=== PATIENT | female | born 1955 | race Caucasian/White ===

== ENCOUNTER 2017-11-12 13:30 | Inpatient (IN) ==
[2017-11-12] MEDS ORDERED: 0.9 % Sodium Chloride 1,000 ML IVC ONE (16:56)
[2017-11-12] MEDS ORDERED: Ondansetron 4 MG/2 ML VIAL IVP ONE (16:56)
--- NOTE | 2017-11-12 17:15 | Emergency Department Note ---
Disposition Clinical Impression: GI bleed Qualifiers: GI bleed type/associated pathology: unspecified gastrointestinal hemorrhage type Qualified Code(s): K92.2 - Gastrointestinal hemorrhage, unspecified DVT (deep venous thrombosis) Qualifiers: DVT location: lower extremity Affected thrombotic vein of extremity: popliteal Chronicity: chronic Laterality: left Qualified Code(s): I82.532 - Chronic embolism and thrombosis of left popliteal vein Disposition: Admitted As Inpatient Condition: Good General Adult HPI - General Chief complaint: ED General Medical Stated complaint: Multiple complaints Time Seen by Provider: 11/12/17 16:30 Source: patient Mode of arrival: private vehicle Limitations: no limitations Nursing Notes Reviewed: Yes Vital Signs Reviewed: Yes - History of Present Illness HPI Narrative: 62-year-old female history of DVT on Coumadin who presents to the ER with multiple complaints. Patient reports she is only here because her nurse made her come in and that she was going to have her bshe did not come. She repoain that has been going on for days. States but has been off that f from an eye surgery. States that she was out of her Coumadin and had not had her INR checked. She also reports that she has not been able to eat for several days with nausea vomiting and abdominal pain. She did not is on a mention that her left toe has been hurting her and that she has had pain there. She also reports that she has been dizzy and she thinks that she has been having rectal bleeding. She states she supposed to see surgery for an upper and lower GI tests. No other complaints. Pt Subjective Complaint: Left lower extremity pain, abdominal pain, nausea and vomiting Onset (ago): day(s) Location: abdomen Radiation: non-radiation Pain Scale: 10 Consistency: intermittent Improves with: nothing Worsens with: nothing Associated symptoms: Reports: nausea/vomiting. Denies: chest pain, fever/chills Treatments Prior to Arrival: none - Related Data Home Medications Medication Instructions Recorded Confirmed Furosemide [Lasix] 20 - 40 mg PO DAILY 11/12/17 11/12/17 Gabapentin [Neurontin] 800 mg PO TID 11/12/17 11/12/17 Insulin ASPART [NovoLOG] 0 unit SQ TIDWM 11/12/17 11/12/17 Insulin DETEMIR [Levemir] 60 unit SQ DAILY PRN 11/12/17 11/12/17 Ketorolac OPTH Soln [Acular] 1 drop RIGHT EYE QID 11/12/17 11/12/17 LevETIRAcetam [Keppra] 750 mg PO BID 11/12/17 11/12/17 Metoprolol [Lopressor] 50 mg PO BID 11/12/17 11/12/17 Oxycodone HCl/Acetaminophen 1 each PO Q8H PRN 11/12/17 11/12/17 [Percocet 10-325 mg Tablet] Oxygen 2.5 l NS HS 11/12/17 11/12/17 Potassium Chloride [Klor-Con 10] 10 meq PO DAILY 11/12/17 11/12/17 Prazosin [Minipress] 1 mg PO HS 11/12/17 11/12/17 Simvastatin [Zocor] 40 mg PO HS 11/12/17 11/12/17 Tizanidine HCl [Zanaflex] 4 mg PO HS 11/12/17 11/12/17 Warfarin Sodium [Coumadin] 6 mg PO MOWEFR 11/12/17 11/12/17 Warfarin [Coumadin] 5 mg PO SUTUTHSA 11/12/17 11/12/17 diazePAM [Valium] 5 mg PO HS 11/12/17 11/12/17 Allergies Allergy/AdvReac Type Severity Reaction Status Date / Time Penicillins Allergy Swelling Verified 11/12/17 14:13 of Lip/Tongue/Throat Sulfa (Sulfonamide Allergy Hives Verified 11/12/17 14:13 Antibiotics) tramadol Allergy Hives Verified 11/12/17 14:13 All systems ED: reviewed and negative except as stated. Constitutional: Denies: fever Cardiovascular: Reports: palpitations. Denies: chest pain Respiratory: Denies: cough, dyspnea Gastrointestinal: Reports: abdominal pain, nausea, vomiting, diarrhea, hematochezia Genitourinary: Denies: dysuria, hematuria Past Medical History - Past Medical History Attestation: Yes The following information was validated with the patient. Source: patient Medical history: Reports: DVT, diabetes, myocardial infarction - Social History Smoking Status: Former smoker Alcohol use: Reports: none Drug use: Reports: none Physical Exam - General Limitations: no limitations General appearance: alert, in no apparent distress - Head Head exam: atraumatic, normocephalic - Eye Eye exam: Present: normal appearance - ENT ENT exam: normal exam - Neck Neck exam: Present: normal inspection, full ROM - Chest Chest inspection: Present: normal inspection, symmetric chest wall rise - Respiratory Respiratory exam: Present: normal lung sounds bilaterally - Cardiovascular Cardiovascular exam: Present: regular rate, normal rhythm, normal heart sounds - Abdominal Exam Abdominal exam: Present: soft, tenderness (Mild diffuse tenderness to palpation) . Absent: distention, guarding, rigidity - Extremities Exam Extremities exam: Present: normal inspection, full ROM - Expanded Upper Extremity Exam Shoulder exam: Present: normal inspection, full ROM Arm exam: Present: normal inspection, full ROM Elbow exam: Present: normal inspection, full ROM Forearm/Wrist exam: Present: normal inspection, full ROM Hand exam: Present: normal inspection, full ROM - Expanded Lower Extremity Exam Hip/Pelvis exam: Present: normal inspection, full ROM Upper leg exam: Present: normal inspection, full ROM Knee exam: Present: normal inspection, full ROM Lower leg exam: Present: normal inspection, full ROM Ankle exam: Present: normal inspection, full ROM Foot/toe exam: Present: normal inspection, full ROM Neurovascular/Tendon exam: Absent: motor deficit, sensory deficit - Neurological Exam Neurological exam: Present: alert, other (GCS 15. Nonfocal exam.) - Psychiatric Psychiatric exam: Present: anxious - Skin Skin exam: Present: warm, dry Course Course Narrative: Patient seen and examined. She requires frequent redirection. She has numerous complaints at all do not seem to be acute. We will obtain an ultrasound of left lower extremity as well as baseline labs and coag studies. - Reevaluation(s) Reevaluation #1: Discussed results of imaging and labs with the patient. She is still guaiac positive. She will be admitted to the hospital for further management. Vital Signs Temperature 98.5 F 11/12/17 14:07 Pulse Rate 90 11/12/17 14:07 Respiratory Rate 20 11/12/17 14:07 Blood Pressure 172/92 11/12/17 14:07 O2 Sat by Pulse Oximetry 100 11/12/17 14:07 Temperature 97.8 F 11/13/17 10:59 Pulse Rate 62 11/13/17 10:59 Respiratory Rate 18 11/13/17 10:59 Blood Pressure 159/73 11/13/17 10:59 O2 Sat by Pulse Oximetry 99 11/13/17 10:59 Oxygen Delivery Oxygen Delivery Room Air Medical Decision Making - MDM Narrative Medical decision making narrative: 62-year-old female presents to the ER due to multiple complaints. Noted to have DVT in the left superficial femoral, popliteal and distal veins. Was previously on Coumadin however has not been on it for over a week. DVT study here demonstrates a chronic clot. She is stool guaiac positive. Hemoglobin is stable. Coags are normal. Patient started on heparin drip and admitted to the hospitalist service. - Lab Data Lab results reviewed: Yes I reviewed the patient's lab results. Result diagrams: 11/13/17 11:39 11/13/17 01:53 Lab Results 11/12/17 11/12/17 11/12/17 Range/Units 17:15 17:15 17:15 WBC 15.0 H (4.3-11.1) K/mcL RBC 3.97 (3.82-4.97) M/mcL Hgb 11.6 (11.5-15.4) g/dL Hct 35.9 (35.3-44.9) % MCV 90.4 (83.0-100.0) fL MCH 29.2 (28.0-33.3) pg MCHC 32.3 (31.6-35.5) g/dL RDW 14.1 (11.5-14.5) % Plt Count 271 (140-400) K/mcL MPV 10.2 (9.4-12.4) fL Immature Gran % 0.6 (0-4) % Seg Neutrophils % 65.9 % Lymphocytes % 23.3 % Monocytes % 7.1 % Eosinophils % 2.4 % Basophils % 0.7 % Neutrophils # 9.9 H (1.6-8.9) K/mcL Lymphocytes # 3.5 (0.6-4.6) K/mcL Monocytes # 1.1 (0.0-1.3) K/mcL Eosinophils # 0.4 (0.0-0.6) K/mcL Basophils # 0.1 (0.0-0.2) K/mcL PT (9.4-12.1) Seconds INR APTT (26.0-36.0) Seconds Sodium 140 (136-145) mEq/L Potassium 3.9 (3.5-5.1) mEq/L Chloride 111 H (98-107) mEq/L Carbon Dioxide 25 (23-29) mEq/L BUN 18 (8-23) mg/dL Creatinine 1.33 H (0.60-1.20) mg/dL Est GFR ( Amer) 49 L (> 60) Est GFR (Non-Af Amer) 40 L (> 60) BUN/Creatinine Ratio 14 (6-26) Glucose 161 H (70-105) mg/dL Calculated Osmolality 295 (280-300) Calcium 9.3 (8.6-10.3) mg/dL Total Bilirubin 0.4 (0.3-1.0) mg/dL Direct Bilirubin 0.0 (0.0-0.2) mg/dL Indirect Bilirubin 0.4 (0.0-1.2) mg/dL AST 22 (13-39) Units/L ALT 33 (7-52) Units/L Alkaline Phosphatase 78 (34-104) Units/L Troponin I < 0.03 (< 0.04) ng/mL Serum Total Protein 7.6 (6.4-8.9) g/dL Albumin 4.0 (3.5-5.7) g/dL Globulin 3.6 H (2.4-3.5) g/dL Albumin/Globulin Ratio 1.1 (1.1-2.2) Lipase 85 H (11-82) Units/L Urine Color (Yellow) Urine Clarity (Clear) Urine pH (5.0-8.0) pH Units Ur Specific [place] (1.010-1.025) Urine Protein (Neg-Trace) mg/dL Urine Glucose (UA) (Normal) mg/dL Urine Ketones (Negative) mg/dL Urine Blood (Negative) Urine Nitrite (Negative) Urine Bilirubin (Negative) Urine Urobilinogen (Normal) mg/dL Ur Leukocyte Esterase (Negative) Urine Microscopic RBC (0-3) per hpf Urine Microscopic WBC (0-3) per hpf Ur Squamous Epith Cells (None-Few) per lpf Urine Bacteria (None-Few) per hpf Hyaline Casts (None-Few) per lpf Ur Culture Indicated? (NO) Stool Occult Blood (Negative) 11/12/17 11/12/17 11/12/17 Range/Units 17:15 18:00 18:25 WBC (4.3-11.1) K/mcL RBC (3.82-4.97) M/mcL Hgb (11.5-15.4) g/dL Hct (35.3-44.9) % MCV (83.0-100.0) fL MCH (28.0-33.3) pg MCHC (31.6-35.5) g/dL RDW (11.5-14.5) % Plt Count (140-400) K/mcL MPV (9.4-12.4) fL Immature Gran % (0-4) % Seg Neutrophils % % Lymphocytes % % Monocytes % % Eosinophils % % Basophils % % Neutrophils # (1.6-8.9) K/mcL Lymphocytes # (0.6-4.6) K/mcL Monocytes # (0.0-1.3) K/mcL Eosinophils # (0.0-0.6) K/mcL Basophils # (0.0-0.2) K/mcL PT 11.3 (9.4-12.1) Seconds INR 1.1 APTT 29.3 (26.0-36.0) Seconds Sodium (136-145) mEq/L Potassium (3.5-5.1) mEq/L Chloride (98-107) mEq/L Carbon Dioxide (23-29) mEq/L BUN (8-23) mg/dL Creatinine (0.60-1.20) mg/dL Est GFR ( Amer) (> 60) Est GFR (Non-Af Amer) (> 60) BUN/Creatinine Ratio (6-26) Glucose (70-105) mg/dL Calculated Osmolality (280-300) Calcium (8.6-10.3) mg/dL Total Bilirubin (0.3-1.0) mg/dL Direct Bilirubin (0.0-0.2) mg/dL Indirect Bilirubin (0.0-1.2) mg/dL AST (13-39) Units/L ALT (7-52) Units/L Alkaline Phosphatase (34-104) Units/L Troponin I (< 0.04) ng/mL Serum Total Protein (6.4-8.9) g/dL Albumin (3.5-5.7) g/dL Globulin (2.4-3.5) g/dL Albumin/Globulin Ratio (1.1-2.2) Lipase (11-82) Units/L Urine Color Yellow (Yellow) Urine Clarity Cloudy A (Clear) Urine pH 6.0 (5.0-8.0) pH Units Ur Specific [place] 1.027 H (1.010-1.025) Urine Protein 100 H (Neg-Trace) mg/dL Urine Glucose (UA) 250 H (Normal) mg/dL Urine Ketones Negative (Negative) mg/dL Urine Blood Negative (Negative) Urine Nitrite Negative (Negative) Urine Bilirubin Negative (Negative) Urine Urobilinogen Normal (Normal) mg/dL Ur Leukocyte Esterase Moderate H (Negative) Urine Microscopic RBC 0-3 (0-3) per hpf Urine Microscopic WBC 15-30 H (0-3) per hpf Ur Squamous Epith Cells Many H (None-Few) per lpf Urine Bacteria Many H (None-Few) per hpf Hyaline Casts None Seen (None-Few) per lpf Ur Culture Indicated? NO (NO) Stool Occult Blood Positive A (Negative) - Radiology Data Radiology results reviewed: Yes I reviewed the patient's radiology results. Abdomen/Pelvis CT 11/12/17 20:06 IMPRESSION: 1. Smooth mucosal appearance of the distal left colon extending to the rectum with loss of normal haustral markings. This is a nonspecific finding that may indicate chronic inflammation. Please correlate with any history of inflammatory bowel disease. 2. No sign of acute inflammation on this noncontrast study. Underlying colitis cannot be excluded. 3. Sludge in the lumen of the gallbladder with no sign of inflammation or biliary ductal dilatation. D/ / Mikey Villalpando MD / Mikey Villalpando MD Interpreting Provider: Mikey Villalpando MD - EKG Data EKG #1 EKG attestation: Yes I reviewed and interpreted this EKG. EKG results narrative: EKG demonstrates sinus rhythm with a rate of 80 bpm. Normal axis. Normal intervals. Normal R-wave progression. No gross ST elevations or depressions. No acute ischemic findings. No significant changes from previous EKG dated 01/03. Attestation Statement - Attestation Attestation: I examined this patient and my medical decision-making was reviewed with the Resident Physician, Dr. Velásquez. I agree with the documented findings, disposition and treatment plan as described except to the extent set forth below. Patient is a 62-year-old white female who presents to the emergency room today with multiple complaints but primary concern is that she had recently stopped her Coumadin that she was taking for chronic DVT for an recent eye procedure and was supposed to be restarted 3-4 days ago and due to her being out of the medication and the holiday she was unable to restart this. Patient is here with worsening pain she points primarily to the toe of the left lower extremity and she has a small ulceration to the bottom of her left great toe. There is no drainage or surrounding erythema. Patient with no fevers or chills. Patient states over the past 36 hours she has had one episode of vomiting associated with nausea as well as some bowel changes that she describes as nonbloody diarrhea. Patient denies any significant abdominal pain, no chest pain pressure or heaviness, no shortness of breath, no lightheadedness or syncope, no flank pain or urinary symptoms. Patient's physical exam findings as documented. Vital signs are stable on arrival and patient in no acute distress. Rectal exam at bedside was grossly negative but guaiac positive. Patient's hemoglobin is stable at this time. Unclear if bleeding could be related to frequent stooling and some bowel irritation versus lower GI bleeding. Patient is hemodynamically stable with a stable hemoglobin at this time. Patient's repeat Doppler study of her left lower extremity was negative for DVT. Patient will be restarted on heparin but hospitalized for close management and serial hemoglobin. CAT scan of her abdomen and pelvis was negative for diverticulitis or any acute intra-abdominal pathology but did show some slight inflammation of the distal colon consistent with her history of diarrhea. Case is discussed with the hospitalist who is except the patient for admission.
[2017-11-12 17:25] LABS: Basophils # 0.1 K/mcL (0.0-0.2); Basophils % 0.7 %; Eosinophils # 0.4 K/mcL (0.0-0.6); Eosinophils % 2.4 %; Hematocrit 35.9 % (35.3-44.9); Hemoglobin 11.6 g/dL (11.5-15.4); Immature Granulocytes % 0.6 % (0-4); Lymphocytes # 3.5 K/mcL (0.6-4.6); Lymphocytes % 23.3 %; Mean Corpuscular HGB Conc 32.3 g/dL (31.6-35.5); Mean Corpuscular Hemoglobin 29.2 pg (28.0-33.3); Mean Corpuscular Volume 90.4 fL (83.0-100.0); Mean Platelet Volume 10.2 fL (9.4-12.4); Monocytes # 1.1 K/mcL (0.0-1.3); Monocytes % 7.1 %; Neutrophils # 9.9 K/mcL (1.6-8.9); Platelet Count 271 K/mcL (140-400); Red Blood Count 3.97 M/mcL (3.82-4.97); Red Cell Distribution Width 14.1 % (11.5-14.5); Segmented Neutrophils % 65.9 %
[2017-11-12 17:28] LABS: INR 1.1; Prothrombin Time 11.3 Seconds (9.4-12.1)
[2017-11-12 17:35] LABS: Albumin/Globulin Ratio 1.1 (1.1-2.2); Bilirubin,Indirect 0.4 mg/dL (0.0-1.2); Bilirubin,Total 0.4 mg/dL (0.3-1.0); Calcium 9.3 mg/dL (8.6-10.3); Globulin 3.6 g/dL (2.4-3.5); Potassium 3.9 mEq/L (3.5-5.1); Total Protein 7.6 g/dL (6.4-8.9)
[2017-11-12 18:43] LABS: Bilirubin,Urine Negative (Negative); Blood,Urine Negative (Negative); Clarity,Urine Cloudy (Clear); Color,Urine Yellow (Yellow); Glucose,Urine (UA) 250 mg/dL (Normal); Ketones,Urine Negative (Negative); Leukocyte Esterase,Urine Moderate (Negative); Nitrite,Urine Negative (Negative); Protein,Urine 100 mg/dL (Neg-Trace); Specific Gravity,Urine 1.027 (1.010-1.025); Urobilinogen,Urine Normal (Normal)
[2017-11-12 18:44] LABS: Bacteria,Urine Many per hpf (None-Few); Hyaline Casts,Urine None Seen per lpf (None-Few); RBC,Urine 0-3 per hpf (0-3); Squamous Epithelial Cell,Urine Many per lpf (None-Few); WBC,Urine 15-30 per hpf (0-3)
[2017-11-12] MEDS ORDERED: *HR* Heparin 5,000 UNIT/ML VIAL IVP ONE (18:52)
[2017-11-12] MEDS ORDERED: *HR* Heparin 5,000 UNIT/ML VIAL IVP PRN ×2 (18:52)
[2017-11-12] MEDS ORDERED: Heparin 25,000 UNIT/500 ML D5W 25,000 UNIT/500 ML BAG IVC SCH (19:00)
[2017-11-12 19:12] LABS: Activated Partial Thrombo Time 29.3 Seconds (26.0-36.0)
[2017-11-12] MEDS ORDERED: NON-FORMULARY MEDICATION 1 EACH EACH (Insulin Detemir 60 UNIT) SQ PRN (19:50)
[2017-11-12] MEDS ORDERED: Acetaminophen 325 MG TABLET PO PRN (19:52)
[2017-11-12] MEDS ORDERED: Naloxone 0.4 MG/ML INJ IVP PRN (19:52)
[2017-11-12] MEDS ORDERED: Ondansetron 4 MG/2 ML VIAL IVP PRN (19:52)
[2017-11-12] MEDS ORDERED: Levofloxacin 500 MG/100 ML 500 MG/100 ML BAG IVPB SCH (20:00)
[2017-11-12] MEDS ORDERED: D5% in 0.45% NACL 1,000 ML IVC SCH (20:00)
--- NOTE | 2017-11-12 20:03 | Internal Med History&Physical ---
<Alma Dolan - Last Filed: 11/12/17 21:05> Date of Encounter: 11/12/17 Time of Encounter: 19:57 Assessment and Plan (1) DVT (deep venous thrombosis) Current visit: Yes Status: Acute - Off coumadin for a week due to eye surgery. should resume 1 day after surgery but pt stated she was out of medicine. - New DVT formed on the left leg. - Heparin gtt restarted and will follow the protocol. - may consult vascular if GI bleeding poses a serious issue. - plan to bridge to coumadin. Qualifiers: DVT location: lower extremity Affected thrombotic vein of extremity: popliteal Chronicity: chronic Laterality: left Qualified Code(s): I82.532 - Chronic embolism and thrombosis of left popliteal vein (2) GI bleed Current visit: Yes Status: Acute - FOBT positive. H/H stable right now. - continue monitor GI bleed and trend H/H. - If bleeding getting worse, may need to stop heparin gtt. Qualifiers: GI bleed type/associated pathology: unspecified gastrointestinal hemorrhage type Qualified Code(s): K92.2 - Gastrointestinal hemorrhage, unspecified (3) Abdominal pain Current visit: Yes Status: Acute - abd pain with diarrhea. - C. diff toxin sent. stool for WBC. - CT abd ordered. - IV hydration Qualifiers: Abdominal location: generalized Qualified Code(s): R10.84 - Generalized abdominal pain (4) Diabetes Current visit: Yes Status: Chronic - insulin Slide scale and home insulin. - monitor BS. 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 - continue home meds. Qualifiers: Coronary Disease-Associated Artery/Lesion type: platinum artery [place] vs. transplanted heart: platinum heart Associated angina: without angina Qualified Code(s): I25.10 - Atherosclerotic heart disease of platinum coronary artery without angina pectoris (6) HTN (hypertension) Current visit: Yes Status: Chronic - stable and continue home meds. Qualifiers: Hypertension type: essential hypertension Qualified Code(s): I10 - Essential (primary) hypertension (7) UTI (urinary tract infection) Current visit: Yes Status: Acute - Levaquin IV and repeat UA once finish the abx course. Qualifiers: Urinary tract infection type: acute cystitis Hematuria presence: without hematuria Qualified Code(s): N30.00 - Acute cystitis without hematuria Internal Medicine - H&P: HPI Admitted From: Emergency Dept Plans for Post Hospital Care: Home History of present illness: Ms. Dionisio Charlton is a 62 year old female with history of DVT on Coumadin who presents to the ER with multiple complaints. Patient reports she is only here because her nurse made her come in. Marty has Hx of DVT and was on coumadin but has been off that from an eye surgery about a week ago. States that she was out of her Coumadin and had not had her INR checked after the surgery. She also reports that she has not been able to eat for several days with nausea vomiting and abdominal pain. On the past 2-3 days, she began to have diarrhea with black stool. She also reports that she has been dizzy and she thinks that she has been having rectal bleeding. She states she supposed to see GI for an upper and lower GI scopes. No other complaints. At the ED, her vital signs were stable. Occult blood test was positive. Lower extremity lower extremity Doppler revealed new thrombosis with old blood clots. She was started on heparin drip. She was also found to have UTI and antibiotics was given. She was admitted to the inpatient service for further evaluation and management. Past Med Surg Social Fam HX - Past Medical History Medical history: DVT, diabetes, myocardial infarction - Social History Smoking Status: Former smoker Alcohol use: none Drug use: none Internal Medicine - H&P: Meds Furosemide [Lasix] 20 - 40 mg PO DAILY 11/12/17 [History] Gabapentin [Neurontin] 800 mg PO TID 11/12/17 [History] Insulin ASPART [NovoLOG] 0 unit SQ TIDWM 11/12/17 [History] Insulin DETEMIR [Levemir] 60 unit SQ DAILY PRN 11/12/17 [History] Ketorolac OPTH Soln [Acular] 1 drop RIGHT EYE QID 11/12/17 [History] LevETIRAcetam [Keppra] 750 mg PO BID 11/12/17 [History] Metoprolol [Lopressor] 50 mg PO BID 11/12/17 [History] Oxycodone HCl/Acetaminophen [Percocet 10-325 mg Tablet] 1 each PO Q8H PRN [History] Oxygen 2.5 l NS HS 11/12/17 [History] Potassium Chloride [Klor-Con 10] 10 meq PO DAILY 11/12/17 [History] Prazosin [Minipress] 1 mg PO HS 11/12/17 [History] Simvastatin [Zocor] 40 mg PO HS 11/12/17 [History] Tizanidine HCl [Zanaflex] 4 mg PO HS 11/12/17 [History] Warfarin Sodium [Coumadin] 6 mg PO MOWEFR 11/12/17 [History] Warfarin [Coumadin] 5 mg PO SUTUTHSA 11/12/17 [History] diazePAM [Valium] 5 mg PO HS 11/12/17 [History] 3 Allergy/AdvReac Type Severity Reaction Status Date / Time Penicillins Allergy Swelling Verified 11/12/17 14:13 of Lip/Tongue/Throat Sulfa (Sulfonamide Allergy Hives Verified 11/12/17 14:13 Antibiotics) tramadol Allergy Hives Verified 11/12/17 14:13 All Systems PM: A 10-system review of systems was performed and is negative for pertinent findings except as documented above in the HPI. Review of systems: REVIEW OF SYSTEMS: CONSTITUTIONAL: No weight loss, fever, chills, weakness or fatigue. HEENT: Eyes: No visual loss, blurred vision, double vision or yellow sclerae. Ears, Nose, Throat: No hearing loss, sneezing, congestion, runny nose or sore throat. SKIN: No rash or itching. CARDIOVASCULAR: No chest pain, chest pressure or chest discomfort. No palpitations or edema. RESPIRATORY: No shortness of breath, cough or sputum. GASTROINTESTINAL: see HPI. GENITOURINARY: No dysuria, urgency, or frequency. NEUROLOGICAL: No headache, dizziness, syncope, paralysis, ataxia, numbness or tingling in the extremities. No change in bowel or bladder control. MUSCULOSKELETAL: No muscle, back pain, joint pain or stiffness. HEMATOLOGIC: No anemia, bleeding or bruising. LYMPHATICS: No enlarged nodes. No history of splenectomy. PSYCHIATRIC: No history of depression or anxiety. ENDOCRINOLOGIC: No reports of sweating, cold or heat intolerance. No polyuria or polydipsia. - Constitutional Vitals: Temp Pulse Resp BP Pulse Ox 98.5 F 75 16 166/84 100 11/12/17 14:07 11/12/17 18:49 11/12/17 18:49 11/12/17 18:49 11/12/17 18:49 Exam: PHYSICAL EXAMINATION: GENERAL APPEARANCE: The patient is alert, oriented and in no acute distress. HEENT: Head is normocephalic. The sinuses are nontender. Pupils are equal and reactive. The nares are patent. Oropharynx clear without lesions. NECK: Supple without lymphadenopathy. HEART: Regular rate and rhythm. LUNGS: No crackles or wheezes are heard. ABDOMEN: Soft, diffuse tender with palpation. No rebound. BS normal. EXTREMITIES: Without cyanosis, clubbing or edema. NEUROLOGICAL: Gross nonfocal. SKIN: Warm and dry without any rash. Internal Med - H&P Results - Labs CBC & Chem 7: 11/12/17 17:15 11/12/17 17:15 <Kenia Connelly - Last Filed: 11/13/17 03:25> Date of Encounter: 11/13/17 Internal Medicine - H&P: HPI History of present illness: Ms. Dionisio Charlton is a 62 year old female All Systems PM: A 10-system review of systems was performed and is negative for pertinent findings except as documented above in the HPI. - Constitutional Vitals: Temp Pulse Resp BP Pulse Ox 98.1 F 80 17 175/88 100 11/12/17 21:43 11/12/17 21:43 11/12/17 21:43 11/12/17 21:43 11/12/17 21:43 Internal Med - H&P Results - Labs CBC & Chem 7: 11/13/17 01:53 11/13/17 01:53 Labs: Short CBC 11/13/17 Range/Units 01:53 WBC 13.2 H (4.3-11.1) K/mcL Hgb 9.3 L D (11.5-15.4) g/dL Hct 28.2 L (35.3-44.9) % Plt Count 198 (140-400) K/mcL BMP 11/13/17 01:53 Sodium 138 Potassium 4.1 Chloride 114 H Carbon Dioxide 21 L BUN 15 Creatinine 1.12 Glucose 252 H Calcium 8.4 L - Impressions ITS Impressions Abdomen/Pelvis CT 11/12/17 20:06 IMPRESSION: 1. Smooth mucosal appearance of the distal left colon extending to the rectum with loss of normal haustral markings. This is a nonspecific finding that may indicate chronic inflammation. Please correlate with any history of inflammatory bowel disease. 2. No sign of acute inflammation on this noncontrast study. Underlying colitis cannot be excluded. 3. Sludge in the lumen of the gallbladder with no sign of inflammation or biliary ductal dilatation. D/ / Mikey Villalpando MD / Mikey Villalpando MD Interpreting Provider: Mikey Villalpando MD - Attending Attestation I have seen and examined pt independently. I have discussed with [employer] SPECIALIST Mr Dolan regarding the management plan. Agree with documentation. Pt suspect GI bleed. She has positive guaiac test, but stable vitals and H/H. She has acute on chronic DVT, will hold warfarin (pt is not on and INR subtherapeutic) and placed pt on heparin drip at this point. Consult GI for GI bleed. Pt has UTI will place her on levaquin. She also has left toe wound, will consult wound care and if necessary, consult podiatry (non-urgent).
[2017-11-12] MEDS ORDERED: D5% in Water 1,000 ML IVC PRN (20:19)
[2017-11-12] MEDS ORDERED: Dextrose Gel 15 GM/37.5 ML TUBE PO PRN ×2 (20:19)
[2017-11-12] MEDS ORDERED: *HR* Dextrose 50 % in Water (Syg) 50 ML SYRINGE IVP PRN (20:19)
[2017-11-12] MEDS ORDERED: Insulin DETEMIR 100 UNIT/ML X5UNITS SQ PRN (20:37)
[2017-11-12] MEDS: Gabapentin 400 MG CAPSULE PO SCH (21:53)
[2017-11-12] MEDS: diazePAM 5 MG TABLET PO SCH (21:53)
[2017-11-12] MEDS: *HR* OxyCODONE/APAP 10/325 TABLET PO PRN (21:54)
[2017-11-12] MEDS: levETIRAcetam 250 MG TABLET PO SCH (21:54)
[2017-11-12] MEDS: tiZANidine 4 MG TABLET PO SCH (21:55)
[2017-11-12] MEDS: Insulin LISPRO 300 UNITS/3 ML VIAL SQ SCH (21:56)
[2017-11-12] MEDS: Furosemide 20 MG TABLET PO SCH (22:00)
[2017-11-13] MEDS: Ketorolac OPTH Soln 5 ML BOTTLE RIGHT EYE SCH ×5 (01:10→21:49)
[2017-11-13] MEDS: Insulin LISPRO 300 UNITS/3 ML VIAL SQ SCH ×6 (01:10→17:06)
[2017-11-13 02:04] LABS: Hematocrit 28.2 % (35.3-44.9); Hemoglobin 9.3 g/dL (11.5-15.4); Mean Platelet Volume 10.4 fL (9.4-12.4); Platelet Count 198 K/mcL (140-400); Red Cell Distribution Width 14.1 % (11.5-14.5)
[2017-11-13 02:21] LABS: Calcium 8.4 mg/dL (8.6-10.3); Potassium 4.1 mEq/L (3.5-5.1)
[2017-11-13 02:28] LABS: Activated Partial Thrombo Time 141.4 Seconds (26.0-36.0)
[2017-11-13 02:33] LABS: Heparin anti-factor XA UFH 0.82 IU/mL (0.30-0.70)
[2017-11-13] MEDS: *HR* Morphine 2 MG/ML SYRINGE IVP PRN ×2 (03:40→09:17)
[2017-11-13] MEDS: Gabapentin 400 MG CAPSULE PO SCH ×3 (09:08→21:40)
[2017-11-13] MEDS: Furosemide 20 MG TABLET PO SCH (09:08)
[2017-11-13] MEDS: levETIRAcetam 250 MG TABLET PO SCH ×2 (09:08→21:40)
[2017-11-13] MEDS: *HR* OxyCODONE/APAP 10/325 TABLET PO PRN ×2 (10:18→21:52)
[2017-11-13] MEDS: Insulin DETEMIR 100 UNIT/ML X5UNITS SQ SCH (10:18)
--- NOTE | 2017-11-13 10:57 | Gastroenterology Consult Note ---
<Ivan Holguin Tom - Last Filed: 11/13/17 10:54> Date of Encounter: 11/13/17 Time of Encounter: 10:20 - Assessment and plan (1) GI bleed Current Visit: Yes Status: Acute Assessment and plan: Patient with dark stools and occasional BRBPR. Plan for EGD and colonoscopy tomorrow. Clear liquid diet today, no red or purple. NPO at midnight. If unable tolerate NuLytely please use MiraLAX prep. If not clear by 6 AM, give 2 tap water enemas. Will need to hold Heparin gtt 6 hours before scopes. Qualifiers: GI bleed type/associated pathology: unspecified gastrointestinal hemorrhage type Qualified Code(s): K92.2 - Gastrointestinal hemorrhage, unspecified (2) DVT (deep venous thrombosis) Current Visit: Yes Status: Acute Assessment and plan: Hold Heparin gtt at 0200 for EGD and colonoscopy at 0800 tomorrow. Qualifiers: DVT location: lower extremity Affected thrombotic vein of extremity: popliteal Chronicity: chronic Laterality: left Qualified Code(s): I82.532 - Chronic embolism and thrombosis of left popliteal vein (3) Abdominal pain Current Visit: Yes Status: Acute Assessment and plan: CT A/P shows smooth mucosal appearance of the distal left colon extending to the rectum with loss of normal haustral markings c/w nonspecific chronic inflammation, no acute inflammation. Sludge in gallbladder. Plan for EGD tomorrow. Qualifiers: Abdominal location: generalized Qualified Code(s): R10.84 - Generalized abdominal pain - Time Spent With Patient Total time spent is greater than 50% in coordination of care (as documented) at patient's floor/unit and/or counseling patient: GI History of Present Illness - Data of Consult Patient: new to practice Consult date: 11/13/17 Requesting Physician: Tariq Brennan - Consult Narrative Reason for consult: GI bleeding History of present illness: Ms. Dionisio Charlton is a 62 year old female with PMHx of DVT on Coumadin, DM, [place] who presented to the ED with abdominal pain, nausea, and vomiting. She also reports diarrhea with black stool and occasional BRBPR. She was recently scheduled for EGD and colonoscopy 10/30/[address] Carrington, but rescheduled the procedures. She states her mother has a history of colon cancer, and the patient's last colonoscopy was 7 years ago at [facility]. On admission FOBT was positive. She has history of DVT and was on coumadin but has been off that from an eye surgery about a week ago. States that she was out of her Coumadin and had not had her INR checked after the surgery. Lower extremity doppler revealed new thrombus along with chronic thrombus. Procedures: Colonoscopy 7 years ago at [facility]. NSAIDs: None Anticoagulation: Coumadin Past Med Surg Social Fam HX - Past Medical History Medical history: DVT, diabetes, myocardial infarction Psychiatric history: anxiety, depression - Past Surgical History Surgical History: hysterectomy - Social History Smoking Status: Former smoker Packs per day: 1/2 Smokeless Tobacco Status: No Alcohol use: none Drug use: none - Gastrointestinal Gastrointestinal: Present: as per HPI - Constitutional Constitutional: as per HPI - EENT Eyes: as per HPI Ears: Present: as per HPI Nose, mouth and throat: Present: as per HPI - Cardiovascular Cardiovascular ROS: Present: as per HPI - Respiratory Respiratory IM: Present: as per HPI - Genitourinary Genitourinary: Absent: change in color, Urinary frequency - Neurological ROS Neurological GI: Present: as per HPI - Hematologic/Lymphatic Hematologic/Lymphatic pediatric: Present: as per HPI - Musculoskeletal Musculoskeletal ROS GI: Present: as per HPI - Integumentary Integumentary GI: Present: as per HPI - Psychiatric ROS Psychiatric GI: Present: as per HPI - Endocrine Endocrine IM: Present: as per HPI - Constitutional Vitals: Temp Pulse Resp BP Pulse Ox 98.4 F 73 18 120/71 98 11/13/17 07:05 11/13/17 07:05 11/13/17 07:05 11/13/17 07:05 11/13/17 07:05 General appearance: Present: cooperative, A&O X 3, no acute distress, answers questions appropriately - Head Head exam: Present: atraumatic, normocephalic - Eye Eye exam: Present: normal appearance, sclera anicteric - ENT ENT exam: Present: mucous membranes moist - Neck Neck exam general surgery: Present: normal inspection, trachea midline - Respiratory Respiratory exam: Present: CTAB. Absent: rales, rhonchi - Cardiovascular Cardiovascular exam: Present: RRR, +S1, +S2 - GI/Abdominal GI/Abdominal exam: Present: soft, tenderness (mild diffuse tenderness), no peritoneal signs. Absent: distended, firm, guarding - Rectal Rectal exam: Present: deferred - Extremities Exam Extremities exam: Present: warm - Neurological Exam Neurological exam: Present: no focal deficits - Psychiatric Psychiatric exam: Present: normal affect, normal mood - Skin Skin exam: Present: dry, intact, normal color, warm Results - Labs CBC & Chem 7: 11/13/17 01:53 11/13/17 01:53 Labs: Last Result Calcium 8.4 mg/dL (8.6-10.3) L 11/13/17 01:53 Troponin I < 0.03 ng/mL (< 0.04) 11/12/17 17:15 Stool Occult Blood Positive (Negative) A 11/12/17 18:00 Entire Visit Hgb 9.3 g/dL (11.5-15.4) L D 11/13/17 01:53 Hct 28.2 % (35.3-44.9) L 11/13/17 01:53 PT 11.3 Seconds (9.4-12.1) 11/12/17 17:15 Total Bilirubin 0.4 mg/dL (0.3-1.0) 11/12/17 17:15 AST 22 Units/L (13-39) 11/12/17 17:15 ALT 33 Units/L (7-52) 11/12/17 17:15 Lipase 85 Units/L (11-82) H 11/12/17 17:15 - ABG ABG results: PT/INR, D-dimer PT 11.3 Seconds (9.4-12.1) 11/12/17 17:15 - Impressions Impressions Abdomen/Pelvis CT 11/12/17 20:06 IMPRESSION: 1. Smooth mucosal appearance of the distal left colon extending to the rectum with loss of normal haustral markings. This is a nonspecific finding that may indicate chronic inflammation. Please correlate with any history of inflammatory bowel disease. 2. No sign of acute inflammation on this noncontrast study. Underlying colitis cannot be excluded. 3. Sludge in the lumen of the gallbladder with no sign of inflammation or biliary ductal dilatation. D/ / Mikey Villalpando MD / Mikey Villalpando MD Interpreting Provider: Mikey Villalpando MD Consult Discharge Plan - Plan Referrals: Nelda Tamayo [Primary Care Provider] - <Sol Cotaed - Last Filed: 11/14/17 08:40> Date of Encounter: 11/13/17 Time of Encounter: 13:00 - Time Spent With Patient Total time spent is greater than 50% in coordination of care (as documented) at patient's floor/unit and/or counseling patient: GI History of Present Illness - Data of Consult Requesting Physician: Zeke Jensen DO - Consult Narrative History of present illness: Ms. Dionisio Charlton is a 62 year old female - Constitutional Vitals: Temp Pulse Resp BP Pulse Ox 98.1 F 62 16 116/63 100 11/13/17 18:29 11/14/17 06:36 11/14/17 06:36 11/14/17 06:36 11/14/17 06:36 Results - Labs CBC & Chem 7: 11/14/17 00:29 11/14/17 00:29 Labs: Last Result Calcium 8.3 mg/dL (8.6-10.3) L 11/14/17 00:29 Troponin I < 0.03 ng/mL (< 0.04) 11/12/17 17:15 Stool Occult Blood Positive (Negative) A 11/12/17 18:00 Entire Visit Hgb 9.1 g/dL (11.5-15.4) L 11/14/17 00:29 Hct 28.6 % (35.3-44.9) L 11/14/17 00:29 PT 12.1 Seconds (9.4-12.1) 11/14/17 00:29 Total Bilirubin 0.4 mg/dL (0.3-1.0) 11/12/17 17:15 AST 22 Units/L (13-39) 11/12/17 17:15 ALT 33 Units/L (7-52) 11/12/17 17:15 Lipase 85 Units/L (11-82) H 11/12/17 17:15 - ABG ABG results: PT/INR, D-dimer PT 12.1 Seconds (9.4-12.1) 11/14/17 00:29 - Impressions Impressions Foot X-Ray 11/13/17 17:34 IMPRESSION: 1. Mild nonspecific edema throughout the soft tissues. No subcutaneous gas identified. 2. No radiographic evidence for osteomyelitis. 3. Osteopenia. D/ / Isaias Sanchez MD / Isaias Sanchez MD Interpreting Provider: Isaias Sanchez MD - Attending Attestation I examined this patient and my medical decision-making was reviewed with the Resident Physician. I agree with the documented findings, disposition and treatment plan as described except to the extent set forth below.
[2017-11-13 12:20] LABS: Hemoglobin 10.2 g/dL (11.5-15.4)
--- NOTE | 2017-11-13 15:46 | Internal Med Progress Note ---
Addendum entered and electronically signed by Symone Bustamante DO 15:55: A/P 6) foot ulcer - wound care consulted Original Note: <Symone Bustamante - Last Filed: 11/13/17 15:42> Date of Encounter: 11/13/17 Time of Encounter: 15:42 - Assessment and plan (1) DVT (deep venous thrombosis) Current Visit: Yes Status: Acute Assessment and plan: Currently on heparin gtt; it will stop at 2am for EGD/colonoscopy H/H Q4H throughout the night IVC filter by IR tomorrow Qualifiers: DVT location: lower extremity Affected thrombotic vein of extremity: popliteal Chronicity: chronic Laterality: left Qualified Code(s): I82.532 - Chronic embolism and thrombosis of left popliteal vein (2) GI bleed Current Visit: Yes Status: Acute Assessment and plan: Plan for EGD/colonoscopy tomorrow Qualifiers: GI bleed type/associated pathology: unspecified gastrointestinal hemorrhage type Qualified Code(s): K92.2 - Gastrointestinal hemorrhage, unspecified (3) Diabetes Current Visit: Yes Status: Chronic Assessment and plan: Home insulin and sliding scale Accu-Cheks ADA diet after EGD and colonoscopy Qualifiers: Diabetes mellitus type: type 2 Diabetes mellitus complication status: without complication Diabetes mellitus laborer marine terminal insulin use: with laborer marine terminal use Qualified Code(s): E11.9 - Type 2 diabetes mellitus without complications ; Z79.4 - intermediate (current) use of insulin; Z79.4 - intermediate (current) use of insulin; Z79.4 - rn long term care (current) use of insulin; Z79.4 - rn long term care ( current) use of insulin (4) HTN (hypertension) Current Visit: Yes Status: Chronic Assessment and plan: Chronic, stable Continue medications Qualifiers: Hypertension type: essential hypertension Qualified Code(s): I10 - Essential (primary) hypertension (5) CAD (coronary artery disease) Current Visit: Yes Status: Chronic Assessment and plan: Chronic, stable Continue medications Qualifiers: Coronary Disease-Associated Artery/Lesion type: [place] artery [place] vs. transplanted heart: [place] heart Associated angina: without angina Qualified Code(s): I25.10 - Atherosclerotic heart disease of [place] coronary artery without angina pectoris - Subjective Interval history: Patient states she filled up 12 depends with diarrhea last night. She has no appetite and is nauseous. She also is complaining of pain in her left leg. - Constitutional Vitals: Temp Pulse Resp BP Pulse Ox 97.8 F 62 18 159/73 99 11/13/17 10:59 11/13/17 10:59 11/13/17 10:59 11/13/17 10:59 11/13/17 10:59 General appearance: Present: A&O X 3, answers questions appropriately - Head Head exam: Present: atraumatic, normocephalic - Eye Eye exam: Present: PERRL, conjuntiva pink, sclera anicteric Pupils: Present: PERRL - Neck Neck exam general surgery: Present: supple, trachea midline - Respiratory Respiratory exam: Present: CTAB. Absent: accessory muscle use, rales, rhonchi, wheezes - Cardiovascular Cardiovascular exam: Present: RRR, +S1, +S2. Absent: diastolic murmur, gallop, rubs, systolic murmur - GI/Abdominal GI/Abdominal exam: Present: normal bowel sounds, soft, tenderness (diffuse). Absent: distended - Extremities Exam Additional comments: L LE with 1-2+ pitting edema, tenderness to palpation; bilateral LE capillary refill 2 seconds, posterior tibial pulses palpable and symmetric; left first toe with 7-8 mm ulcer on plantar aspect of DIP. - Neurological Exam Neurological exam: Present: CN II-XII intact, oriented X3, no focal deficits. Absent: pronater drift, facial droop, speech deficit - Skin Skin exam: Present: dry, intact Internal Medicine: Result - Labs CBC & Chem 7: 11/13/17 11:39 11/13/17 01:53 Labs: Short CBC 11/13/17 11/13/17 Range/Units 01:53 11:39 WBC 13.2 H (4.3-11.1) K/mcL Hgb 9.3 L D 10.2 L (11.5-15.4) g/dL Hct 28.2 L 32.0 L (35.3-44.9) % Plt Count 198 (140-400) K/mcL BMP 11/13/17 01:53 Sodium 138 Potassium 4.1 Chloride 114 H Carbon Dioxide 21 L BUN 15 Creatinine 1.12 Glucose 252 H Calcium 8.4 L - ABG Interpretation ABG results: PT/INR, D-dimer PT 11.3 Seconds (9.4-12.1) 11/12/17 17:15 - Impressions Impressions Abdomen/Pelvis CT 11/12/17 20:06 IMPRESSION: 1. Smooth mucosal appearance of the distal left colon extending to the rectum with loss of normal haustral markings. This is a nonspecific finding that may indicate chronic inflammation. Please correlate with any history of inflammatory bowel disease. 2. No sign of acute inflammation on this noncontrast study. Underlying colitis cannot be excluded. 3. Sludge in the lumen of the gallbladder with no sign of inflammation or biliary ductal dilatation. D/ / Mikey Villalpando MD / Mikey Villalpando MD Interpreting Provider: Mikey Villalpando MD Consult Discharge Plan - Plan Referrals: Nelda Tamayo [Primary Care Provider] - <Bharat Mccain - Last Filed: 11/13/17 17:18> Date of Encounter: 11/13/17 - Constitutional Vitals: Temp Pulse Resp BP Pulse Ox 97.5 F L 73 18 129/74 100 11/13/17 16:19 11/13/17 16:19 11/13/17 16:19 11/13/17 16:19 11/13/17 16:19 Internal Medicine: Result - Labs CBC & Chem 7: 11/13/17 11:39 11/13/17 01:53 Labs: Short CBC 11/13/17 11/13/17 Range/Units 01:53 11:39 WBC 13.2 H (4.3-11.1) K/mcL Hgb 9.3 L D 10.2 L (11.5-15.4) g/dL Hct 28.2 L 32.0 L (35.3-44.9) % Plt Count 198 (140-400) K/mcL BMP 11/13/17 01:53 Sodium 138 Potassium 4.1 Chloride 114 H Carbon Dioxide 21 L BUN 15 Creatinine 1.12 Glucose 252 H Calcium 8.4 L - ABG Interpretation ABG results: PT/INR, D-dimer PT 11.3 Seconds (9.4-12.1) 11/12/17 17:15 - Impressions Impressions Abdomen/Pelvis CT 11/12/17 20:06 IMPRESSION: 1. Smooth mucosal appearance of the distal left colon extending to the rectum with loss of normal haustral markings. This is a nonspecific finding that may indicate chronic inflammation. Please correlate with any history of inflammatory bowel disease. 2. No sign of acute inflammation on this noncontrast study. Underlying colitis cannot be excluded. 3. Sludge in the lumen of the gallbladder with no sign of inflammation or biliary ductal dilatation. D/ / Mikey Villalpando MD / Mikey Villalpando MD Interpreting Provider: Mikey Villalpando MD - Attending Attestation I conducted a face to face diagnostic evaluation of this patient and my medical decision-making was reviewed with the Resident Physician, Dr Symone Bustamante. I agree with the documented findings, disposition and treatment plan as described except to the extent set forth below: Patient complains of bloody diarrhea. Abdominal pain. On exam she is in no acute distress, awake alert oriented. Abdomen is soft nontender nondistended. There is nonpitting edema of the left lower extremity and tenderness to palpation. She was started last night on heparin drip for her DVT. Hemoglobin dropped 2 points in 8 hours. I am concerned of clinically significant GI bleed. She is at high risk for severe, even fatal bleeding and therefore I will stop heparin drip. At this point she is not a good candidate for anticoagulation due to rectal bleeding. She will require an IVC filter placement by IR, we will prefer retrievable filter. She will be evaluated by GI with EGD and colonoscopy. Bharat Mccain MD
[2017-11-13] MEDS ORDERED: SODIUM CHLORIDE/NAHCO3/KCL/PEG 4,000 ML SOLN.RECON PO ONE (17:00)
[2017-11-13] MEDS: Polymyxn-B/Trimeth Opth Drops 10 ML BOTTLE RIGHT EYE SCH ×2 (17:07→21:38)
[2017-11-13] MEDS: PrednisoLONE Acetate 1% Opth 5 ML BOTTLE RIGHT EYE SCH ×2 (17:07→21:39)
--- NOTE | 2017-11-13 17:21 | Podiatry Consult Note ---
Date of Encounter: 11/13/17 Time of Encounter: 17:00 Assessment and Plan (1) Diabetic foot ulcer Current visit: Yes Status: Acute Partial thickness diabetic foot ulcer to the plantar aspect of the left great toe. There is light periwound erythema, mild edema, small amount of serous drainage observed to dressing. No odor, no cellulitis, no probe to bone. Base of wound with healthy granulation tissue, wound edges are macerated from drainage. Will order an xray of the left great toe due to chronic ulcer and rule out bony erosion. Recommend cleansing left great toe daily with saline, pat dry, apply calcium alginate, with 4x4 dry sterile gauze and medipore tape. Will f/u with patient after xray is completed. Qualifiers: Diabetic foot ulcer location: toe Diabetes mellitus type: type 2 Laterality: left Non-pressure ulcer stage: limited to breakdown of skin Qualified Code(s): E11.621 - Type 2 diabetes mellitus with foot ulcer; L97.521 - Non-pressure chronic ulcer of other part of left foot limited to breakdown of skin; L97.521 - Non-pressure chronic ulcer of other part of left foot limited to breakdown of skin; L97.521 - Non-pressure chronic ulcer of other part of left foot limited to breakdown of skin; L97.521 - Non-pressure chronic ulcer of other part of left foot limited to breakdown of skin (2) DVT (deep venous thrombosis) Current visit: Yes Status: Acute Qualifiers: DVT location: lower extremity Affected thrombotic vein of extremity: popliteal Chronicity: chronic Laterality: left Qualified Code(s): I82.532 - Chronic embolism and thrombosis of left popliteal vein (3) Diabetes Current visit: Yes Status: Chronic Qualifiers: Diabetes mellitus type: type 2 Diabetes mellitus complication status: without complication 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 Dionisio Charlton is a 62 year old female admitted to [facility] on 11/13/17 for a DVT of the left lower extremity, UTI, GI bleed and abdominal pain. Patient has a medical history significant for diabetes, hypertension, hyperlipidemia, and PVD. Podiatry was consulted for an ulcer to the left great toe. Patient states the ulcer of the left great toe has been present for approximately 2 months. Patient states 2 months ago her left great toe become red and swollen, patient was evaluated by her PCP at that time. Patient states the left great toe burst open on the bottom and her PCP said it was from a bunch of baby fleas. Patient states she was then told it may be from gout or diabetes. Patient states her left foot is numb. No known injury or trauma. Patient states she has been cleaning the left great toe daily with dial soap, applying neosporin, non stick gauze and dry gauze. Patient states her left great toe is looking much better. Patient denies any pain currently to the left great toe. Patient states she has never been evaluated by a Biometrics Instructor. Patient states she had diabetic shoes but did not fit right and dos not where them currently. Patient states she has pain to the LLE and is not able to bear any weight to the left leg and that is why her home health aid made her come to the hospital. Patient states she had left eye surgery last week in [place] and has been off of her Coumadin since the surgery. Upon arrival to the hospital patient had an US of the LLE that showed left iliac through tibial vein demonstrates chronic thrombosis. Per patients last vascular note in 2016, patient has had multiple episodes of superficial thrombophlebitis and a LLE DVT. Patient was instructed at that time to continue with compression, leg elevation, exercise and analgesics. Patient admits to diarrhea. Patient states her blood sugars run in the 200s, she states they use to be in the 700s. Patient states she was diagnosed with diabetes four years ago. Past Med Surg Social Fam HX - Past Medical History Medical history: DVT, diabetes, myocardial infarction Psychiatric history: anxiety, depression - Past Surgical History Surgical History: hysterectomy - Social History Smoking Status: Former smoker Packs per day: 1/2 Smokeless Tobacco Status: No Alcohol use: none Drug use: none Medications and Allergies Furosemide [Lasix] 20 - 40 mg PO DAILY 11/12/17 [History] Gabapentin [Neurontin] 800 mg PO TID 11/12/17 [History] Insulin ASPART [NovoLOG] 0 unit SQ TIDWM 11/12/17 [History] Insulin DETEMIR [Levemir] 60 unit SQ DAILY PRN 11/12/17 [History] Ketorolac OPTH Soln [Acular] 1 drop RIGHT EYE QID 11/12/17 [History] LevETIRAcetam [Keppra] 750 mg PO BID 11/12/17 [History] Metoprolol [Lopressor] 50 mg PO BID 11/12/17 [History] Oxycodone HCl/Acetaminophen [Percocet 10-325 mg Tablet] 1 each PO Q8H PRN [History] Oxygen 2.5 l NS HS 11/12/17 [History] Potassium Chloride [Klor-Con 10] 10 meq PO DAILY 11/12/17 [History] Prazosin [Minipress] 1 mg PO HS 11/12/17 [History] Simvastatin [Zocor] 40 mg PO HS 11/12/17 [History] Tizanidine HCl [Zanaflex] 4 mg PO HS 11/12/17 [History] Warfarin Sodium [Coumadin] 6 mg PO MOWEFR 11/12/17 [History] Warfarin [Coumadin] 5 mg PO SUTUTHSA 11/12/17 [History] diazePAM [Valium] 5 mg PO HS 11/12/17 [History] Polymyxn-B/Trimeth Opth Drops 1 drop OP QID 11/13/17 [History] PrednisoLONE Acetate 1% Opth [PredFORTE 1%] 1 drop RIGHT EYE QID 11/13/17 [ History] 3 Allergy/AdvReac Type Severity Reaction Status Date / Time Penicillins Allergy Swelling Verified 11/12/17 14:13 of Lip/Tongue/Throat Sulfa (Sulfonamide Allergy Hives Verified 11/12/17 14:13 Antibiotics) tramadol Allergy Hives Verified 11/12/17 14:13 All Systems Reviewed: A 10-system review of systems was performed and is negative for pertinent findings except as documented above in the HPI. Physical Exam - Constitutional Vitals: Temp Pulse Resp BP Pulse Ox 97.5 F L 73 18 129/74 100 11/13/17 16:19 11/13/17 16:19 11/13/17 16:19 11/13/17 16:19 11/13/17 16:19 Exam: General appearance: alert awake oriented X 3. Calm and pleasant, no acute distress.. Vascular: Pedal pulses +2/4 DP/PT , No evidence of cyanosis, pallor or rubor, Edema graded at 1+/4, Skin Temperature warm, capillary refill time is immediate to digits. LLE: Positive Homans sign. Neurologic: Sensation intact with light touch to right foot, diminished to left foot. Ulcer: Partial-thickness ulceration to the plantar aspect at the base of the left great toe measuring 0.7 cm in length by 1 cm in width by 0.1 cm in depth. Base of wound is beefy red, with a small amount of serous drainage observed to dressing. Light periwound erythema with mild edema, toe is tender upon palpation. No streaking, no ascending cellulitis, no probe to bone, no pus, no odor, no tunneling, no sinus tracts, surrounding wound edges are macerated. Dried scab to the medial aspect of the left great toe. Results - Labs Result Diagrams: 11/13/17 11:39 11/13/17 01:53 Labs: Abnormal lab results WBC 13.2 K/mcL (4.3-11.1) H 11/13/17 01:53 RBC 3.10 M/mcL (3.82-4.97) L 11/13/17 01:53 Hgb 10.2 g/dL (11.5-15.4) L 11/13/17 11:39 Hct 32.0 % (35.3-44.9) L 11/13/17 11:39 Neutrophils # 9.9 K/mcL (1.6-8.9) H 11/12/17 17:15 APTT 52.2 Seconds (26.0-36.0) H D 11/13/17 09:45 Heparin Anti-Xa, Unfract 0.82 IU/mL (0.30-0.70) H 11/13/17 01:53 Chloride 114 mEq/L (98-107) H 11/13/17 01:53 Carbon Dioxide 21 mEq/L (23-29) L 11/13/17 01:53 Est GFR (Non-Af Amer) 49 (> 60) L 11/13/17 01:53 Glucose 252 mg/dL (70-105) H 11/13/17 01:53 POC Glucose 140 (58-89) H 11/12/17 21:34 Calcium 8.4 mg/dL (8.6-10.3) L 11/13/17 01:53 Globulin 3.6 g/dL (2.4-3.5) H 11/12/17 17:15 Lipase 85 Units/L (11-82) H 11/12/17 17:15 Urine Clarity Cloudy (Clear) A 11/12/17 18:25 Ur Specific [place] 1.027 (1.010-1.025) H 11/12/17 18:25 Urine Protein 100 mg/dL (Neg-Trace) H 11/12/17 18:25 Urine Glucose (UA) 250 mg/dL (Normal) H 11/12/17 18:25 Ur Leukocyte Esterase Moderate (Negative) H 11/12/17 18:25 Urine Microscopic WBC 15-30 per hpf (0-3) H 11/12/17 18:25 Ur Squamous Epith Cells Many per lpf (None-Few) H 11/12/17 18:25 Urine Bacteria Many per hpf (None-Few) H 11/12/17 18:25 Stool Occult Blood Positive (Negative) A 11/12/17 18:00 H & H 11/13/17 11/13/17 Range/Units 01:53 11:39 Hgb 9.3 L D 10.2 L (11.5-15.4) g/dL Hct 28.2 L 32.0 L (35.3-44.9) % All other labs normal. Consult Discharge Plan - Plan Referrals: Nelda Tamayo [Primary Care Provider] -
[2017-11-13 18:28] LABS: Basophils # 0.1 K/mcL (0.0-0.2); Basophils % 0.6 %; Eosinophils # 0.5 K/mcL (0.0-0.6); Eosinophils % 3.8 %; Hematocrit 31.7 % (35.3-44.9); Hemoglobin 9.9 g/dL (11.5-15.4); Immature Granulocytes % 0.6 % (0-4); Lymphocytes # 4.6 K/mcL (0.6-4.6); Lymphocytes % 33.5 %; Mean Corpuscular HGB Conc 31.2 g/dL (31.6-35.5); Mean Corpuscular Hemoglobin 28.8 pg (28.0-33.3); Mean Corpuscular Volume 92.2 fL (83.0-100.0); Mean Platelet Volume 10.7 fL (9.4-12.4); Monocytes % 7.1 %; Neutrophils # 7.4 K/mcL (1.6-8.9); Nucleated Red Blood Cells 0.1 /100 WBC (0); Platelet Count 226 K/mcL (140-400); Red Blood Count 3.44 M/mcL (3.82-4.97); Segmented Neutrophils % 54.4 %
[2017-11-13] MEDS ORDERED: Levofloxacin 250 MG/50 ML 250 MG/50 ML BAG IVPB SCH (20:00)
[2017-11-13] MEDS ORDERED: Levofloxacin 500 MG/100 ML 500 MG/100 ML BAG IVPB SCH (20:00)
[2017-11-13 20:22] LABS: Hematocrit 30.7 % (35.3-44.9); Hemoglobin 10.1 g/dL (11.5-15.4)
[2017-11-13] MEDS: diazePAM 5 MG TABLET PO SCH (21:39)
[2017-11-13] MEDS: tiZANidine 4 MG TABLET PO SCH (21:41)
[2017-11-13] MEDS: *HR* Heparin 5,000 UNIT/ML VIAL SQ SCH (21:41)
[2017-11-14 01:14] LABS: Basophils # 0.1 K/mcL (0.0-0.2); Basophils % 0.7 %; Eosinophils # 0.5 K/mcL (0.0-0.6); Eosinophils % 4.3 %; Hematocrit 28.6 % (35.3-44.9); Hemoglobin 9.1 g/dL (11.5-15.4); Immature Granulocytes % 0.5 % (0-4); Lymphocytes # 2.7 K/mcL (0.6-4.6); Lymphocytes % 21.9 %; Mean Corpuscular HGB Conc 31.8 g/dL (31.6-35.5); Mean Corpuscular Hemoglobin 28.9 pg (28.0-33.3); Mean Corpuscular Volume 90.8 fL (83.0-100.0); Mean Platelet Volume 10.5 fL (9.4-12.4); Monocytes % 7.9 %; Neutrophils # 7.8 K/mcL (1.6-8.9); Platelet Count 204 K/mcL (140-400); Red Blood Count 3.15 M/mcL (3.82-4.97); Red Cell Distribution Width 14.1 % (11.5-14.5); Segmented Neutrophils % 64.7 %
[2017-11-14 01:27] LABS: INR 1.1; Prothrombin Time 12.1 Seconds (9.4-12.1)
[2017-11-14 01:30] LABS: Activated Partial Thrombo Time 30.3 Seconds (26.0-36.0)
[2017-11-14 01:45] LABS: Calcium 8.3 mg/dL (8.6-10.3); Potassium 4.1 mEq/L (3.5-5.1)
[2017-11-14] MEDS: Insulin LISPRO 300 UNITS/3 ML VIAL SQ SCH ×8 (04:46→20:47)
[2017-11-14] MEDS: *HR* Heparin 5,000 UNIT/ML VIAL SQ SCH (04:51)
--- NOTE | 2017-11-14 07:38 | Anesthesia Evaluation PreOp ---
<Mikayla Velez - Last Filed: 11/14/17 07:35> Date of Encounter: 11/14/17 - Past History Cardiac History: OK, HTN, Hyperlipidemia, Other (DVT) Pulmonary History: Former smoker Other Medical History: Bleeding (GI bleed), Diabetes Type II Alcohol Use: none Drug use: none Medications and Allergies Furosemide [Lasix] 20 - 40 mg PO DAILY 11/12/17 [History] Gabapentin [Neurontin] 800 mg PO TID 11/12/17 [History] Insulin ASPART [NovoLOG] 0 unit SQ TIDWM 11/12/17 [History] Insulin DETEMIR [Levemir] 60 unit SQ DAILY PRN 11/12/17 [History] Ketorolac OPTH Soln [Acular] 1 drop RIGHT EYE QID 11/12/17 [History] LevETIRAcetam [Keppra] 750 mg PO BID 11/12/17 [History] Metoprolol [Lopressor] 50 mg PO BID 11/12/17 [History] Oxycodone HCl/Acetaminophen [Percocet 10-325 mg Tablet] 1 each PO Q8H PRN [History] Oxygen 2.5 l NS HS 11/12/17 [History] Potassium Chloride [Klor-Con 10] 10 meq PO DAILY 11/12/17 [History] Prazosin [Minipress] 1 mg PO HS 11/12/17 [History] Simvastatin [Zocor] 40 mg PO HS 11/12/17 [History] Tizanidine HCl [Zanaflex] 4 mg PO HS 11/12/17 [History] Warfarin Sodium [Coumadin] 6 mg PO MOWEFR 11/12/17 [History] Warfarin [Coumadin] 5 mg PO SUTUTHSA 11/12/17 [History] diazePAM [Valium] 5 mg PO HS 11/12/17 [History] Polymyxn-B/Trimeth Opth Drops 1 drop OP QID 11/13/17 [History] PrednisoLONE Acetate 1% Opth [PredFORTE 1%] 1 drop RIGHT EYE QID 11/13/17 [ History] 3 Allergy/AdvReac Type Severity Reaction Status Date / Time Penicillins Allergy Swelling Verified 11/12/17 14:13 of Lip/Tongue/Throat Sulfa (Sulfonamide Allergy Hives Verified 11/12/17 14:13 Antibiotics) tramadol Allergy Hives Verified 11/12/17 14:13 - Meds/Allergy Pre-op Review Medications Reviewed: Yes Allergies Reviewed: Yes Beta Blockers on Current Med List: Yes (metoprolol) If Beta Blockers taken, Date/Time (Last Dose taken): 11-13-17 at 21:40 Anesthesia Results - Labs 11/14/17 00:29 11/14/17 00:29 <Irvin Bustamante - Last Filed: 11/14/17 07:49> Date of Encounter: 11/14/17 Time of Encounter: 07:42 - Past History Planned Operation: egd, colonoscopy [employer] History: Denies Any Significant HX : No Anesthesia Results - Labs 11/14/17 00:29 11/14/17 00:29 Anesthesia Exam Selected Entries 11/13/17 18:29 11/14/17 06:36 Temperature 98.1 F Pulse Rate 62 Respiratory Rate 16 Blood Pressure 116/63 O2 Sat by Pulse Oximetry 100 Weight: 80kg NPO (# of Hours): 8 - HEENT Pupil (Motor): EOMI Mallampati: II Teeth: Edentulous Oral Opening: Greater than 3 - [employer] LOC: Oriented [employer] Motor: Normal RUE, Normal LUE, Normal RLE, Normal LLE, Normal Face [employer] Sensory: Normal: RUE, LUE, RLE, LLE, Face - Cardiac Rhythm: Regular Murmur: None - Pulmonary Breath Sounds: bilateral Clear Respiratory Effort: Symmetrical Anesthesia Assess/Plan ASA Score: 3 Modified Creighton Scale for Level of Consciousness: Cooperative, oriented, and tranquil Anesthetic Plan: MAC Monitoring Plan: Standard Monitors Recovery Plan: Other (agrees to MAC)
[2017-11-14] MEDS ORDERED: Lidocaine -MPF 2% 2 ML VIAL ONE (07:46)
[2017-11-14] MEDS ORDERED: Propofol 500 MG/50 ML INFUS..BTL ONE (07:47)
[2017-11-14] MEDS ORDERED: Simethicone 40 MG/0.6 ML MLS IR ONE (08:02)
[2017-11-14] MEDS ORDERED: Tetracaine/Benzocaine/Butamben 200MG/SPRAY (100SPY/BOT) MM ONE (08:02)
[2017-11-14] MEDS ORDERED: EPHEDrine 50 MG/ML VIAL ONE (08:10)
[2017-11-14] MEDS ORDERED: *HR* Phenylephrine 10 MG/ML VIAL ONE (08:15)
[2017-11-14] MEDS: levETIRAcetam 250 MG TABLET PO SCH ×2 (09:56→21:01)
[2017-11-14] MEDS: Furosemide 20 MG TABLET PO SCH (09:57)
[2017-11-14] MEDS: Ketorolac OPTH Soln 5 ML BOTTLE RIGHT EYE SCH ×4 (09:57→21:09)
[2017-11-14] MEDS: Gabapentin 400 MG CAPSULE PO SCH ×3 (09:57→21:01)
[2017-11-14] MEDS: Polymyxn-B/Trimeth Opth Drops 10 ML BOTTLE RIGHT EYE SCH ×4 (09:58→21:10)
[2017-11-14] MEDS: PrednisoLONE Acetate 1% Opth 5 ML BOTTLE RIGHT EYE SCH ×4 (09:58→21:09)
[2017-11-14] MEDS: *HR* OxyCODONE/APAP 10/325 TABLET PO PRN ×2 (10:02→21:05)
[2017-11-14] MEDS: Insulin DETEMIR 100 UNIT/ML X5UNITS SQ SCH (10:11)
[2017-11-14] MEDS ORDERED: Heparin 1,000 UNIT, 0.9 % Sodium Chloride 500 ML INARTERIAL ONE (11:00)
[2017-11-14] MEDS ORDERED: *HR* Heparin 5,000 UNIT/ML VIAL IVP ONE (13:21)
[2017-11-14] MEDS ORDERED: *HR* Heparin 5,000 UNIT/ML VIAL IVP PRN ×2 (13:21)
[2017-11-14] MEDS ORDERED: Heparin 25,000 UNIT/500 ML D5W 25,000 UNIT/500 ML BAG IVC SCH (13:30)
--- NOTE | 2017-11-14 15:02 | Internal Med Progress Note ---
<Symone Bustamante - Last Filed: 11/14/17 14:58> Date of Encounter: 11/14/17 Time of Encounter: 14:59 - Assessment and plan (1) DVT (deep venous thrombosis) Current Visit: Yes Status: Acute Assessment and plan: heparin gtt coumadin pharmacy to dose patient will need to be bridged prior to discharge or discharge with lovenox she is high risk due to risk of post phlebitic syndrome Qualifiers: DVT location: lower extremity Affected thrombotic vein of extremity: popliteal Chronicity: chronic Laterality: left Qualified Code(s): I82.532 - Chronic embolism and thrombosis of left popliteal vein (2) GI bleed Current Visit: Yes Status: Acute Assessment and plan: EGD: Low grade a esophagitis, localized mild inflammation of the pylorus and duodenum Colonoscopy: Poor prep. No blood seen. Repeat in 1 year for screening for colon cancer Hg stable Qualifiers: GI bleed type/associated pathology: unspecified gastrointestinal hemorrhage type Qualified Code(s): K92.2 - Gastrointestinal hemorrhage, unspecified (3) Diabetic foot ulcer Current Visit: Yes Status: Acute Assessment and plan: Being followed by wound care and podiatry X-ray negative for bone involvement Qualifiers: Diabetic foot ulcer location: toe Diabetes mellitus type: type 2 Laterality: left Non-pressure ulcer stage: limited to breakdown of skin Qualified Code(s): E11.621 - Type 2 diabetes mellitus with foot ulcer; L97.521 - Non-pressure chronic ulcer of other part of left foot limited to breakdown of skin; L97.521 - Non-pressure chronic ulcer of other part of left foot limited to breakdown of skin; L97.521 - Non-pressure chronic ulcer of other part of left foot limited to breakdown of skin; L97.521 - Non-pressure chronic ulcer of other part of left foot limited to breakdown of skin (4) Diabetes Current Visit: Yes Status: Chronic Assessment and plan: Home insulin and sliding scale Accu-Cheks ADA diet Qualifiers: Diabetes mellitus type: type 2 Diabetes mellitus complication status: without complication Diabetes mellitus predatory animal exterminator insulin use: with [facility] use Qualified Code(s): E11.9 - Type 2 diabetes mellitus without complications ; Z79.4 - prison (current) use of insulin; Z79.4 - joint terminal attack controller (current) use of insulin; Z79.4 - prison (current) use of insulin; Z79.4 - prison ( current) use of insulin (5) HTN (hypertension) Current Visit: Yes Status: Chronic Assessment and plan: Chronic, stable Continue medications Qualifiers: Hypertension type: essential hypertension Qualified Code(s): I10 - Essential (primary) hypertension (6) CAD (coronary artery disease) Current Visit: Yes Status: Chronic Assessment and plan: Chronic, stable Continue medications Qualifiers: Coronary Disease-Associated Artery/Lesion type: [place] artery [place] vs. transplanted heart: [place] heart Associated angina: without angina Qualified Code(s): I25.10 - Atherosclerotic heart disease of [place] coronary artery without angina pectoris - Subjective Interval history: Patient states she is still having pain in her left leg. - Constitutional Vitals: Temp Pulse Resp BP Pulse Ox 98.1 F 71 17 128/69 99 11/13/17 18:29 11/14/17 10:53 11/14/17 10:53 11/14/17 10:53 11/14/17 10:53 General appearance: Present: A&O X 3, answers questions appropriately - Head Head exam: Present: atraumatic, normocephalic - Eye Eye exam: Present: PERRL, conjuntiva pink, sclera anicteric Pupils: Present: PERRL - Neck Neck exam general surgery: Present: supple, trachea midline - Respiratory Respiratory exam: Present: CTAB. Absent: accessory muscle use, rales, rhonchi, wheezes - Cardiovascular Cardiovascular exam: Present: RRR, +S1, +S2. Absent: diastolic murmur, gallop, rubs, systolic murmur - GI/Abdominal GI/Abdominal exam: Present: normal bowel sounds, soft, tenderness (mild), no peritoneal signs. Absent: distended - Extremities Exam Additional comments: L LE with 1-2+ pitting edema, tenderness to palpation; bilateral LE capillary refill 2 seconds, posterior tibial pulses palpable and symmetric - Neurological Exam Neurological exam: Present: CN II-XII intact, oriented X3, no focal deficits. Absent: pronater drift, facial droop, speech deficit - Skin Skin exam: Present: dry, intact Internal Medicine: Result - Labs CBC & Chem 7: 11/14/17 00:29 11/14/17 00:29 Labs: Short CBC 11/13/17 11/13/1711/14/17 Range/Units 16:37 20:05 00:29 WBC 13.7 H 12.1 H (4.3-11.1) K/mcL Hgb 9.9 L 10.1 L 9.1 L (11.5-15.4) g/dL Hct 31.7 L 30.7 L 28.6 L (35.3-44.9) % Plt Count 226 204 (140-400) K/mcL Neutrophils # 7.4 7.8 (1.6-8.9) K/mcL BMP 11/14/17 00:29 Sodium 139 Potassium 4.1 Chloride 113 H Carbon Dioxide 21 L BUN 14 Creatinine 1.22 H Glucose 103 Calcium 8.3 L - ABG Interpretation ABG results: PT/INR, D-dimer PT 12.1 Seconds (9.4-12.1) 11/14/17 00:29 - Impressions Impressions Foot X-Ray 11/13/17 17:34 IMPRESSION: 1. Mild nonspecific edema throughout the soft tissues. No subcutaneous gas identified. 2. No radiographic evidence for osteomyelitis. 3. Osteopenia. D/ / Isaias Sanchez MD / Isaias Sanchez MD Interpreting Provider: Isaias Sanchez MD Consult Discharge Plan - Plan Referrals: Nelda Tamayo [Primary Care Provider] - <Zeke Jensen - Last Filed: 11/14/17 18:51> Date of Encounter: 11/14/17 - Assessment and plan (1) DVT (deep venous thrombosis) Current Visit: Yes Status: Acute Qualifiers: DVT location: lower extremity Affected thrombotic vein of extremity: popliteal Chronicity: chronic Laterality: left Qualified Code(s): I82.532 - Chronic embolism and thrombosis of left popliteal vein (2) Anemia Current Visit: Yes Status: Chronic Qualifiers: Anemia type: iron deficiency Iron deficiency anemia type: chronic blood loss Qualified Code(s): D50.0 - Iron deficiency anemia secondary to blood loss (chronic) (3) CAD (coronary artery disease) Current Visit: Yes Status: Chronic Qualifiers: Coronary Disease-Associated Artery/Lesion type: [place] artery [place] vs. transplanted heart: [place] heart Associated angina: without angina Qualified Code(s): I25.10 - Atherosclerotic heart disease of [place] coronary artery without angina pectoris (4) Diabetes Current Visit: Yes Status: Chronic Qualifiers: Diabetes mellitus type: type 2 Diabetes mellitus complication status: without complication Diabetes mellitus predatory animal exterminator insulin use: with predatory animal exterminator use Qualified Code(s): E11.9 - Type 2 diabetes mellitus without complications ; Z79.4 - joint terminal attack controller (current) use of insulin; Z79.4 - joint terminal attack controller (current) use of insulin; Z79.4 - prison (current) use of insulin; Z79.4 - joint terminal attack controller ( current) use of insulin (5) HTN (hypertension) Current Visit: Yes Status: Chronic Qualifiers: Hypertension type: essential hypertension Qualified Code(s): I10 - Essential (primary) hypertension - Constitutional Vitals: Temp Pulse Resp BP Pulse Ox 98.5 F 71 18 104/58 99 11/14/17 17:01 11/14/17 17:01 11/14/17 17:01 11/14/17 17:01 11/14/17 17:01 Internal Medicine: Result - Labs CBC & Chem 7: 11/14/17 00:29 11/14/17 00:29 Labs: Short CBC 11/13/17 11/14/17 Range/Units 20:05 00:29 WBC 12.1 H (4.3-11.1) K/mcL Hgb 10.1 L 9.1 L (11.5-15.4) g/dL Hct 30.7 L 28.6 L (35.3-44.9) % Plt Count 204 (140-400) K/mcL Neutrophils # 7.8 (1.6-8.9) K/mcL BMP 11/14/17 00:29 Sodium 139 Potassium 4.1 Chloride 113 H Carbon Dioxide 21 L BUN 14 Creatinine 1.22 H Glucose 103 Calcium 8.3 L - ABG Interpretation ABG results: PT/INR, D-dimer PT 12.1 Seconds (9.4-12.1) 11/14/17 00:29 - Impressions Impressions Foot X-Ray 11/13/17 17:34 IMPRESSION: 1. Mild nonspecific edema throughout the soft tissues. No subcutaneous gas identified. 2. No radiographic evidence for osteomyelitis. 3. Osteopenia. D/ / Isaias Sanchez MD / Isaias Sanchez MD Interpreting Provider: Isaias Sanchez MD - Attending Attestation I examined this patient and my medical decision-making was reviewed with the Resident Physician on 11/14/17. I agree with the documented findings, disposition and treatment plan as described except to the extent set forth below. Ms Nichole is currently admitted for anemia and DVT. She remains moderate to high risk due to potential for worsening clinical status. Ms Nichole had endoscopy today. No active bleeding noted. Heparin drip restarted. No fever or chills. Has been having pain in her leg. Exam Alert. Comfortable Mucus membranes dry Heart reg No wheeze Abd soft Leg tender I/P 1. DVT - restart heparin and coumadin as no active bleeding on endoscope today. At risk for post phlebitic syndrome as well as complications of IVC filter if placed. 2. Anemia - will monitor with restarting anticoagulant. Further diagnoses and plan as above.
[2017-11-14] MEDS ORDERED: Warfarin perPT PO PRN (18:00)
[2017-11-14] MEDS ORDERED: *HR* Warfarin 5 MG TABLET PO ONE (18:36)
--- NOTE | 2017-11-14 19:02 | Electrocardiograph Report ---
[address] [address] Test Date: 2017-11-12 Pat Name: Franny Charlton Department: 104 Room: 2A Gender: F Wood Fence Installer: : 1955 Requested By: Cr Velásquez Order Number: [id number] Reading MD: Earnest Mcdowell MD Measurements Intervals [place] Rate: 80 P: 30 MO: 164 QRS: 16 QRSD: 88 T: 67 QT: 369 QTc: 405 Interpretive Statements SINUS RHYTHM Electronically Signed On 11-14-2017 19:00:34 EST by Earnest Mcdowell MD
[2017-11-14] MEDS: diazePAM 5 MG TABLET PO SCH (21:01)
[2017-11-14] MEDS: tiZANidine 4 MG TABLET PO SCH (21:01)
[2017-11-14 21:56] LABS: Activated Partial Thrombo Time 157.9 Seconds (26.0-36.0)
[2017-11-14 22:03] LABS: Heparin anti-factor XA UFH 0.86 IU/mL (0.30-0.70)
[2017-11-14] MEDS: Heparin 25,000 UNIT/500 ML D5W 25,000 UNIT/500 ML BAG IVC SCH (23:04)
[2017-11-15 04:19] LABS: Basophils # 0.1 K/mcL (0.0-0.2); Basophils % 0.7 %; Eosinophils # 0.5 K/mcL (0.0-0.6); Eosinophils % 4.6 %; Hematocrit 29.9 % (35.3-44.9); Hemoglobin 9.7 g/dL (11.5-15.4); Immature Granulocytes % 0.4 % (0-4); Lymphocytes # 3.2 K/mcL (0.6-4.6); Lymphocytes % 27.1 %; Mean Corpuscular HGB Conc 32.4 g/dL (31.6-35.5); Mean Corpuscular Hemoglobin 29.9 pg (28.0-33.3); Mean Corpuscular Volume 92.3 fL (83.0-100.0); Mean Platelet Volume 10.5 fL (9.4-12.4); Monocytes # 0.9 K/mcL (0.0-1.3); Monocytes % 7.2 %; Neutrophils # 7.1 K/mcL (1.6-8.9); Platelet Count 216 K/mcL (140-400); Red Blood Count 3.24 M/mcL (3.82-4.97); Red Cell Distribution Width 14.2 % (11.5-14.5)
[2017-11-15 04:22] LABS: INR 1.1; Prothrombin Time 12.4 Seconds (9.4-12.1)
[2017-11-15 04:26] LABS: Activated Partial Thrombo Time 69.5 Seconds (26.0-36.0)
[2017-11-15 04:32] LABS: Calcium 8.2 mg/dL (8.6-10.3)
[2017-11-15] MEDS: *HR* OxyCODONE/APAP 10/325 TABLET PO PRN ×3 (05:11→22:13)
[2017-11-15] MEDS: Insulin LISPRO 300 UNITS/3 ML VIAL SQ SCH ×7 (08:58→20:50)
[2017-11-15] MEDS: Polymyxn-B/Trimeth Opth Drops 10 ML BOTTLE RIGHT EYE SCH ×4 (08:58→20:58)
[2017-11-15] MEDS: Ketorolac OPTH Soln 5 ML BOTTLE RIGHT EYE SCH ×4 (08:59→20:58)
[2017-11-15] MEDS: Gabapentin 400 MG CAPSULE PO SCH ×3 (08:59→20:49)
[2017-11-15] MEDS: levETIRAcetam 250 MG TABLET PO SCH ×2 (08:59→20:49)
[2017-11-15] MEDS: Furosemide 20 MG TABLET PO SCH (08:59)
[2017-11-15] MEDS: PrednisoLONE Acetate 1% Opth 5 ML BOTTLE RIGHT EYE SCH ×4 (08:59→20:58)
[2017-11-15] MEDS: Insulin DETEMIR 100 UNIT/ML X5UNITS SQ SCH (10:19)
--- NOTE | 2017-11-15 11:16 | Internal Med Progress Note ---
<Symone Bustamante - Last Filed: 11/15/17 11:13> Date of Encounter: 11/15/17 Time of Encounter: 11:13 - Assessment and plan (1) DVT (deep venous thrombosis) Current Visit: Yes Status: Acute Assessment and plan: heparin gtt coumadin pharmacy to dose patient will need to be bridged prior to discharge or discharge with lovenox she is high risk due to risk of post phlebitic syndrome Coumadin may not be the best discharge option for this patient as she gives a history of not eating for 2-3 weeks at a time. Look into the cost to the patient for Eliquis. Qualifiers: DVT location: lower extremity Affected thrombotic vein of extremity: popliteal Chronicity: chronic Laterality: left Qualified Code(s): I82.532 - Chronic embolism and thrombosis of left popliteal vein (2) Diarrhea Current Visit: Yes Status: Acute Assessment and plan: patient states she is still having profuse diarrhea (12 episodes this AM) GI panel ordered Qualifiers: Diarrhea type: unspecified type Qualified Code(s): R19.7 - Diarrhea, unspecified (3) Diabetic foot ulcer Current Visit: Yes Status: Acute Assessment and plan: Being followed by wound care and podiatry X-ray negative for bone involvement Qualifiers: Diabetic foot ulcer location: toe Diabetes mellitus type: type 2 Laterality: left Non-pressure ulcer stage: limited to breakdown of skin Qualified Code(s): E11.621 - Type 2 diabetes mellitus with foot ulcer; L97.521 - Non-pressure chronic ulcer of other part of left foot limited to breakdown of skin; L97.521 - Non-pressure chronic ulcer of other part of left foot limited to breakdown of skin; L97.521 - Non-pressure chronic ulcer of other part of left foot limited to breakdown of skin; L97.521 - Non-pressure chronic ulcer of other part of left foot limited to breakdown of skin (4) GI bleed Current Visit: Yes Status: Suspected Assessment and plan: Patient admitted with history of bright red blood per rectum with diarrhea EGD: Low grade a esophagitis, localized mild inflammation of the pylorus and duodenum Colonoscopy: Poor prep. No blood seen. Repeat in 1 year for screening for colon cancer Hg stable Qualifiers: GI bleed type/associated pathology: unspecified gastrointestinal hemorrhage type Qualified Code(s): K92.2 - Gastrointestinal hemorrhage, unspecified (5) Diabetes Current Visit: Yes Status: Chronic Assessment and plan: Home insulin and sliding scale Accu-Cheks ADA diet Qualifiers: Diabetes mellitus type: type 2 Diabetes mellitus complication status: without complication Diabetes mellitus net coordinator insulin use: with care home use Qualified Code(s): E11.9 - Type 2 diabetes mellitus without complications ; Z79.4 - [facility] (current) use of insulin; Z79.4 - [facility] (current) use of insulin; Z79.4 - clinical nurse leader (current) use of insulin; Z79.4 - [facility] ( current) use of insulin (6) HTN (hypertension) Current Visit: Yes Status: Chronic Assessment and plan: Chronic, stable Continue medications Qualifiers: Hypertension type: essential hypertension Qualified Code(s): I10 - Essential (primary) hypertension (7) CAD (coronary artery disease) Current Visit: Yes Status: Chronic Assessment and plan: Chronic, stable Continue medications Qualifiers: Coronary Disease-Associated Artery/Lesion type: [place] artery [place] vs. transplanted heart: [place] heart Associated angina: without angina Qualified Code(s): I25.10 - Atherosclerotic heart disease of [place] coronary artery without angina pectoris - Subjective Interval history: Patient complaining of profuse diarrhea (12 episodes this AM), abdominal pain, and left leg pain. She states she has incredible pain with walking to the bedside commode. - Constitutional Vitals: Temp Pulse Resp BP Pulse Ox 98.4 F 79 17 142/77 96 11/15/17 08:41 11/15/17 08:41 11/15/17 08:41 11/15/17 08:41 11/15/17 08:41 General appearance: Present: A&O X 3, answers questions appropriately - Head Head exam: Present: atraumatic, normocephalic - Eye Eye exam: Present: PERRL, conjuntiva pink, sclera anicteric Pupils: Present: PERRL - Neck Neck exam general surgery: Present: supple, trachea midline - Respiratory Respiratory exam: Present: CTAB. Absent: accessory muscle use, rales, rhonchi, wheezes - Cardiovascular Cardiovascular exam: Present: RRR, +S1, +S2, systolic murmur. Absent: diastolic murmur, gallop, rubs - GI/Abdominal GI/Abdominal exam: Present: normal bowel sounds, soft, tenderness (moderate, diffuse), no peritoneal signs. Absent: distended - Extremities Exam Additional comments: L LE with 1-2+ pitting edema, tenderness to palpation; bilateral LE capillary refill 2 seconds, posterior tibial pulses palpable and symmetric - Neurological Exam Neurological exam: Present: CN II-XII intact, oriented X3, no focal deficits. Absent: facial droop, speech deficit - Skin Skin exam: Present: dry, intact Internal Medicine: Result - Labs CBC & Chem 7: 11/15/17 03:17 11/15/17 03:17 Labs: Short CBC 11/15/17 Range/Units 03:17 WBC 11.8 H (4.3-11.1) K/mcL Hgb 9.7 L (11.5-15.4) g/dL Hct 29.9 L (35.3-44.9) % Plt Count 216 (140-400) K/mcL Neutrophils # 7.1 (1.6-8.9) K/mcL BMP 11/15/17 03:17 Sodium 138 Potassium 4.0 Chloride 111 H Carbon Dioxide 24 BUN 19 Creatinine 1.34 H Glucose 166 H Calcium 8.2 L - ABG Interpretation ABG results: PT/INR, D-dimer PT 12.4 Seconds (9.4-12.1) H 11/15/17 03:17 Consult Discharge Plan - Plan Referrals: Nelda Tamayo [Primary Care Provider] - <Zeke Jensen - Last Filed: 11/15/17 18:29> Date of Encounter: 11/15/17 - Assessment and plan (1) DVT (deep venous thrombosis) Current Visit: Yes Status: Acute Qualifiers: DVT location: lower extremity Affected thrombotic vein of extremity: popliteal Chronicity: chronic Laterality: left Qualified Code(s): I82.532 - Chronic embolism and thrombosis of left popliteal vein (2) Anemia Current Visit: Yes Status: Chronic Qualifiers: Anemia type: iron deficiency Iron deficiency anemia type: chronic blood loss Qualified Code(s): D50.0 - Iron deficiency anemia secondary to blood loss (chronic) (3) CAD (coronary artery disease) Current Visit: Yes Status: Chronic Qualifiers: Coronary Disease-Associated Artery/Lesion type: [place] artery [place] vs. transplanted heart: [place] heart Associated angina: without angina Qualified Code(s): I25.10 - Atherosclerotic heart disease of [place] coronary artery without angina pectoris (4) Diabetes Current Visit: Yes Status: Chronic Qualifiers: Diabetes mellitus type: type 2 Diabetes mellitus complication status: without complication Diabetes mellitus care home insulin use: with care home use Qualified Code(s): E11.9 - Type 2 diabetes mellitus without complications ; Z79.4 - [facility] (current) use of insulin; Z79.4 - [facility] (current) use of insulin; Z79.4 - [facility] (current) use of insulin; Z79.4 - [facility] ( current) use of insulin (5) HTN (hypertension) Current Visit: Yes Status: Chronic Qualifiers: Hypertension type: essential hypertension Qualified Code(s): I10 - Essential (primary) hypertension - Constitutional Vitals: Temp Pulse Resp BP Pulse Ox 98.3 F 75 17 97/62 95 11/15/17 15:44 11/15/17 15:44 11/15/17 15:44 11/15/17 15:44 11/15/17 15:44 Internal Medicine: Result - Labs CBC & Chem 7: 11/15/17 03:17 11/15/17 03:17 Labs: Short CBC 11/15/17 Range/Units 03:17 WBC 11.8 H (4.3-11.1) K/mcL Hgb 9.7 L (11.5-15.4) g/dL Hct 29.9 L (35.3-44.9) % Plt Count 216 (140-400) K/mcL Neutrophils # 7.1 (1.6-8.9) K/mcL BMP 11/15/17 03:17 Sodium 138 Potassium 4.0 Chloride 111 H Carbon Dioxide 24 BUN 19 Creatinine 1.34 H Glucose 166 H Calcium 8.2 L - ABG Interpretation ABG results: PT/INR, D-dimer PT 12.4 Seconds (9.4-12.1) H 11/15/17 03:17 - Attending Attestation I examined this patient and my medical decision-making was reviewed with the Resident Physician on 11/15/17. I agree with the documented findings, disposition and treatment plan as described except to the extent set forth below. Ms Nichole is currently admitted for DVT and anemia. She is currently on heparin drip. She remains moderate to high risk due to potential for worsening clinical status. Ms Nichole has multiple complaints. She continues with abd discomfort. Reports diarrhea but never seen by nursing. No fever or chills. INR still low. Having persistent leg pain. Exam alert. Comfortable Heart reg No wheeze Abd soft - mild diffuse discomfort without peritoneal signs. Tender to touch L leg I/P 1. DVT 2. Anemia Further diagnoses and plan as above.
[2017-11-15] MEDS ORDERED: *HR* Warfarin 5 MG TABLET PO ONE (18:00)
[2017-11-15] MEDS: Heparin 25,000 UNIT/500 ML D5W 25,000 UNIT/500 ML BAG IVC SCH (20:40)
[2017-11-15] MEDS: tiZANidine 4 MG TABLET PO SCH (20:49)
[2017-11-15] MEDS: diazePAM 5 MG TABLET PO SCH (20:49)
[2017-11-16] MEDS: *HR* OxyCODONE/APAP 10/325 TABLET PO PRN ×2 (05:46→15:43)
[2017-11-16 08:08] LABS: Basophils # 0.1 K/mcL (0.0-0.2); Basophils % 0.7 %; Eosinophils # 0.5 K/mcL (0.0-0.6); Eosinophils % 4.6 %; Hemoglobin 9.4 g/dL (11.5-15.4); Immature Granulocytes % 0.3 % (0-4); Lymphocytes # 3.4 K/mcL (0.6-4.6); Lymphocytes % 33.8 %; Mean Corpuscular HGB Conc 32.4 g/dL (31.6-35.5); Mean Corpuscular Hemoglobin 29.8 pg (28.0-33.3); Mean Corpuscular Volume 92.1 fL (83.0-100.0); Mean Platelet Volume 10.3 fL (9.4-12.4); Monocytes # 0.7 K/mcL (0.0-1.3); Monocytes % 7.3 %; Neutrophils # 5.3 K/mcL (1.6-8.9); Platelet Count 213 K/mcL (140-400); Red Blood Count 3.15 M/mcL (3.82-4.97); Red Cell Distribution Width 14.5 % (11.5-14.5); Segmented Neutrophils % 53.3 %
[2017-11-16 08:10] LABS: INR 1.1; Prothrombin Time 12.2 Seconds (9.4-12.1)
[2017-11-16 08:13] LABS: Activated Partial Thrombo Time 74.6 Seconds (26.0-36.0)
[2017-11-16 08:22] LABS: Calcium 8.3 mg/dL (8.6-10.3); Potassium 4.1 mEq/L (3.5-5.1)
[2017-11-16] MEDS: Gabapentin 400 MG CAPSULE PO SCH ×3 (09:19→20:24)
[2017-11-16] MEDS: Furosemide 20 MG TABLET PO SCH (09:19)
[2017-11-16] MEDS: Insulin LISPRO 300 UNITS/3 ML VIAL SQ SCH ×7 (09:19→20:25)
[2017-11-16] MEDS: Insulin DETEMIR 100 UNIT/ML X5UNITS SQ SCH (09:20)
[2017-11-16] MEDS: levETIRAcetam 250 MG TABLET PO SCH ×2 (09:20→20:23)
[2017-11-16] MEDS: PrednisoLONE Acetate 1% Opth 5 ML BOTTLE RIGHT EYE SCH ×4 (09:21→20:25)
[2017-11-16] MEDS: Polymyxn-B/Trimeth Opth Drops 10 ML BOTTLE RIGHT EYE SCH ×4 (09:21→20:25)
[2017-11-16] MEDS: Ketorolac OPTH Soln 5 ML BOTTLE RIGHT EYE SCH ×4 (09:21→20:24)
--- NOTE | 2017-11-16 10:50 | Internal Med Progress Note ---
<Symone Bustamante - Last Filed: 11/16/17 10:48> Date of Encounter: 11/16/17 Time of Encounter: 10:48 - Assessment and plan (1) DVT (deep venous thrombosis) Current Visit: Yes Status: Acute Assessment and plan: INR 1.1 today heparin gtt coumadin pharmacy to dose patient will need to be bridged prior to discharge or discharge with lovenox she is high risk due to risk of post phlebitic syndrome Coumadin may not be the best discharge option for this patient as she gives a history of not eating for 2-3 weeks at a time. Look into the cost to the patient for Eliquis. Qualifiers: DVT location: lower extremity Affected thrombotic vein of extremity: popliteal Chronicity: chronic Laterality: left Qualified Code(s): I82.532 - Chronic embolism and thrombosis of left popliteal vein (2) Diabetic foot ulcer Current Visit: Yes Status: Acute Assessment and plan: Being followed by wound care and podiatry X-ray negative for bone involvement Qualifiers: Diabetic foot ulcer location: toe Diabetes mellitus type: type 2 Laterality: left Non-pressure ulcer stage: limited to breakdown of skin Qualified Code(s): E11.621 - Type 2 diabetes mellitus with foot ulcer; L97.521 - Non-pressure chronic ulcer of other part of left foot limited to breakdown of skin; L97.521 - Non-pressure chronic ulcer of other part of left foot limited to breakdown of skin; L97.521 - Non-pressure chronic ulcer of other part of left foot limited to breakdown of skin; L97.521 - Non-pressure chronic ulcer of other part of left foot limited to breakdown of skin (3) Diarrhea Current Visit: Yes Status: Acute Assessment and plan: GI panel ordered Qualifiers: Diarrhea type: unspecified type Qualified Code(s): R19.7 - Diarrhea, unspecified (4) GI bleed Current Visit: Yes Status: Suspected Assessment and plan: Patient admitted with history of bright red blood per rectum with diarrhea EGD: Low grade a esophagitis, localized mild inflammation of the pylorus and duodenum Colonoscopy: Poor prep. No blood seen. Repeat in 1 year for screening for colon cancer Hg stable Qualifiers: GI bleed type/associated pathology: unspecified gastrointestinal hemorrhage type Qualified Code(s): K92.2 - Gastrointestinal hemorrhage, unspecified (5) Diabetes Current Visit: Yes Status: Chronic Assessment and plan: Home insulin and sliding scale Accu-Cheks ADA diet Qualifiers: Diabetes mellitus type: type 2 Diabetes mellitus complication status: without complication Diabetes mellitus collection specialist insulin use: with skilled nursing use Qualified Code(s): E11.9 - Type 2 diabetes mellitus without complications ; Z79.4 - custodial (current) use of insulin; Z79.4 - custodial (current) use of insulin; Z79.4 - custodial (current) use of insulin; Z79.4 - mill roll rewinder ( current) use of insulin (6) HTN (hypertension) Current Visit: Yes Status: Chronic Assessment and plan: Chronic, stable Continue medications Qualifiers: Hypertension type: essential hypertension Qualified Code(s): I10 - Essential (primary) hypertension (7) CAD (coronary artery disease) Current Visit: Yes Status: Chronic Assessment and plan: Chronic, stable Continue medications Qualifiers: Coronary Disease-Associated Artery/Lesion type: [place] artery [place] vs. transplanted heart: [place] heart Associated angina: without angina Qualified Code(s): I25.10 - Atherosclerotic heart disease of [place] coronary artery without angina pectoris - Subjective Interval history: Patient states she feels dizzy from her blood sugars being this low (normal range for blood sugars; she states that her blood sugars stay high 200s to 300s) . She also is complaining of leg pain. - Constitutional Vitals: Temp Pulse Resp BP Pulse Ox 98.3 F 74 18 109/66 96 11/16/17 07:59 11/16/17 07:59 11/16/17 07:59 11/16/17 07:59 11/16/17 07:59 General appearance: Present: A&O X 3, answers questions appropriately - Head Head exam: Present: atraumatic, normocephalic - Eye Eye exam: Present: PERRL, conjuntiva pink, sclera anicteric Pupils: Present: PERRL - Neck Neck exam general surgery: Present: supple, trachea midline - Respiratory Respiratory exam: Present: CTAB. Absent: accessory muscle use, rales, rhonchi, wheezes - Cardiovascular Cardiovascular exam: Present: RRR, +S1, +S2. Absent: diastolic murmur, gallop, rubs, systolic murmur - GI/Abdominal GI/Abdominal exam: Present: normal bowel sounds, soft, tenderness (mild), no peritoneal signs. Absent: distended - Extremities Exam Additional comments: L LE with 1-2+ pitting edema, tenderness to palpation; bilateral LE capillary refill 2 seconds, posterior tibial pulses palpable and symmetric - Neurological Exam Neurological exam: Present: CN II-XII intact, oriented X3, no focal deficits. Absent: pronater drift, facial droop, speech deficit - Skin Skin exam: Present: dry, intact Internal Medicine: Result - Labs CBC & Chem 7: 11/16/17 07:18 11/16/17 07:18 Labs: Short CBC 11/16/17 Range/Units 07:18 WBC 9.9 (4.3-11.1) K/mcL Hgb 9.4 L (11.5-15.4) g/dL Hct 29.0 L (35.3-44.9) % Plt Count 213 (140-400) K/mcL Neutrophils # 5.3 (1.6-8.9) K/mcL BMP 11/16/17 07:18 Sodium 142 Potassium 4.1 Chloride 116 H Carbon Dioxide 23 BUN 19 Creatinine 1.24 H Glucose 121 H Calcium 8.3 L - ABG Interpretation ABG results: PT/INR, D-dimer PT 12.2 Seconds (9.4-12.1) H 11/16/17 07:18 Consult Discharge Plan - Plan Referrals: Nelda Tamayo [Primary Care Provider] - <Zeke Jensen - Last Filed: 11/16/17 18:42> Date of Encounter: 11/16/17 - Assessment and plan (1) DVT (deep venous thrombosis) Current Visit: Yes Status: Acute Qualifiers: DVT location: lower extremity Affected thrombotic vein of extremity: popliteal Chronicity: chronic Laterality: left Qualified Code(s): I82.532 - Chronic embolism and thrombosis of left popliteal vein (2) Anemia Current Visit: Yes Status: Chronic Qualifiers: Anemia type: iron deficiency Iron deficiency anemia type: chronic blood loss Qualified Code(s): D50.0 - Iron deficiency anemia secondary to blood loss (chronic) (3) CAD (coronary artery disease) Current Visit: Yes Status: Chronic Qualifiers: Coronary Disease-Associated Artery/Lesion type: [place] artery [place] vs. transplanted heart: [place] heart Associated angina: without angina Qualified Code(s): I25.10 - Atherosclerotic heart disease of [place] coronary artery without angina pectoris (4) Diabetes Current Visit: Yes Status: Chronic Qualifiers: Diabetes mellitus type: type 2 Diabetes mellitus complication status: without complication Diabetes mellitus collection specialist insulin use: with skilled nursing use Qualified Code(s): E11.9 - Type 2 diabetes mellitus without complications ; Z79.4 - mill roll rewinder (current) use of insulin; Z79.4 - mill roll rewinder (current) use of insulin; Z79.4 - mill roll rewinder (current) use of insulin; Z79.4 - custodial ( current) use of insulin (5) HTN (hypertension) Current Visit: Yes Status: Chronic Qualifiers: Hypertension type: essential hypertension Qualified Code(s): I10 - Essential (primary) hypertension - Constitutional Vitals: Temp Pulse Resp BP Pulse Ox 98.7 F 76 15 119/67 96 11/16/17 16:15 11/16/17 16:15 11/16/17 16:15 11/16/17 16:15 11/16/17 16:15 Internal Medicine: Result - Labs CBC & Chem 7: 11/16/17 07:18 11/16/17 07:18 Labs: Short CBC 11/16/17 Range/Units 07:18 WBC 9.9 (4.3-11.1) K/mcL Hgb 9.4 L (11.5-15.4) g/dL Hct 29.0 L (35.3-44.9) % Plt Count 213 (140-400) K/mcL Neutrophils # 5.3 (1.6-8.9) K/mcL BMP 11/16/17 07:18 Sodium 142 Potassium 4.1 Chloride 116 H Carbon Dioxide 23 BUN 19 Creatinine 1.24 H Glucose 121 H Calcium 8.3 L - ABG Interpretation ABG results: PT/INR, D-dimer PT 12.2 Seconds (9.4-12.1) H 11/16/17 07:18 - Attending Attestation I examined this patient and my medical decision-making was reviewed with the Resident Physician on 11/16/17. I agree with the documented findings, disposition and treatment plan as described except to the extent set forth below. Ms Nichole is currently admitted for acute anemia and DVT. She is on heparin and coumadin. She remains moderate to high risk due to potential for worsening clinical status. Ms Nichole is having no pain at this time. No CP or SOB. No fever or chills. INR still low. Exam Alert. Comfortable Mucus membranes dry Heart reg No wheeze Abd soft I/P 1. DVT L leg - on heparin and coumadin 2. Anemia Further diagnoses and plan as above.
[2017-11-16] MEDS ORDERED: *HR* Warfarin 5 MG TABLET PO ONE (18:00)
[2017-11-16] MEDS: tiZANidine 4 MG TABLET PO SCH (20:22)
[2017-11-16] MEDS: diazePAM 5 MG TABLET PO SCH (20:23)
[2017-11-16] MEDS: Heparin 25,000 UNIT/500 ML D5W 25,000 UNIT/500 ML BAG IVC SCH (23:14)
[2017-11-17 07:53] LABS: INR 1.2; Prothrombin Time 12.8 Seconds (9.4-12.1)
[2017-11-17 07:55] LABS: Activated Partial Thrombo Time 61.8 Seconds (26.0-36.0)
[2017-11-17 08:05] LABS: Basophils # 0.1 K/mcL (0.0-0.2); Eosinophils # 0.5 K/mcL (0.0-0.6); Hematocrit 30.9 % (35.3-44.9); Hemoglobin 9.8 g/dL (11.5-15.4); Immature Granulocytes % 0.4 % (0-4); Lymphocytes # 2.7 K/mcL (0.6-4.6); Lymphocytes % 29.4 %; Mean Corpuscular HGB Conc 31.7 g/dL (31.6-35.5); Mean Corpuscular Hemoglobin 29.2 pg (28.0-33.3); Mean Platelet Volume 10.4 fL (9.4-12.4); Monocytes # 0.7 K/mcL (0.0-1.3); Monocytes % 7.6 %; Neutrophils # 5.2 K/mcL (1.6-8.9); Platelet Count 225 K/mcL (140-400); Red Blood Count 3.36 M/mcL (3.82-4.97); Red Cell Distribution Width 14.4 % (11.5-14.5); Segmented Neutrophils % 56.6 %
[2017-11-17 08:26] LABS: Calcium 8.7 mg/dL (8.6-10.3); Potassium 4.4 mEq/L (3.5-5.1)
[2017-11-17] MEDS: Gabapentin 400 MG CAPSULE PO SCH ×3 (09:07→22:18)
[2017-11-17] MEDS: levETIRAcetam 250 MG TABLET PO SCH ×2 (09:07→22:17)
[2017-11-17] MEDS: Furosemide 20 MG TABLET PO SCH (09:07)
[2017-11-17] MEDS: Polymyxn-B/Trimeth Opth Drops 10 ML BOTTLE RIGHT EYE SCH ×4 (09:08→22:16)
[2017-11-17] MEDS: Ketorolac OPTH Soln 5 ML BOTTLE RIGHT EYE SCH ×4 (09:08→22:16)
[2017-11-17] MEDS: PrednisoLONE Acetate 1% Opth 5 ML BOTTLE RIGHT EYE SCH ×4 (09:08→22:17)
[2017-11-17] MEDS: Insulin LISPRO 300 UNITS/3 ML VIAL SQ SCH ×7 (09:08→22:12)
[2017-11-17] MEDS: Insulin DETEMIR 100 UNIT/ML X5UNITS SQ SCH (09:09)
[2017-11-17] MEDS: *HR* OxyCODONE/APAP 10/325 TABLET PO PRN ×2 (09:45→22:22)
--- NOTE | 2017-11-17 10:30 | Discharge Summary ---
<Symone Bustamante - Last Filed: 11/17/17 10:25> Date of Encounter: 11/17/17 Time of Encounter: 10:26 - Discharge Diagnosis (1) DVT (deep venous thrombosis) Priority: Primary Status: Acute Qualifiers: DVT location: lower extremity Affected thrombotic vein of extremity: popliteal Chronicity: chronic Laterality: left Qualified Code(s): I82.532 - Chronic embolism and thrombosis of left popliteal vein (2) Diabetic foot ulcer Priority: Secondary Status: Acute Qualifiers: Diabetic foot ulcer location: toe Diabetes mellitus type: type 2 Laterality: left Non-pressure ulcer stage: limited to breakdown of skin Qualified Code(s): E11.621 - Type 2 diabetes mellitus with foot ulcer; L97.521 - Non-pressure chronic ulcer of other part of left foot limited to breakdown of skin; L97.521 - Non-pressure chronic ulcer of other part of left foot limited to breakdown of skin; L97.521 - Non-pressure chronic ulcer of other part of left foot limited to breakdown of skin; L97.521 - Non-pressure chronic ulcer of other part of left foot limited to breakdown of skin (3) Diarrhea Priority: Secondary Status: Acute Qualifiers: Diarrhea type: unspecified type Qualified Code(s): R19.7 - Diarrhea, unspecified (4) GI bleed Priority: Secondary Status: Suspected Qualifiers: GI bleed type/associated pathology: unspecified gastrointestinal hemorrhage type Qualified Code(s): K92.2 - Gastrointestinal hemorrhage, unspecified (5) Diabetes Priority: Secondary Status: Chronic Qualifiers: Diabetes mellitus type: type 2 Diabetes mellitus complication status: without complication Diabetes mellitus emt intermediate insulin use: with snf use Qualified Code(s): E11.9 - Type 2 diabetes mellitus without complications ; Z79.4 - intermediate teacher (current) use of insulin; Z79.4 - penitentiary (current) use of insulin; Z79.4 - penitentiary (current) use of insulin; Z79.4 - intermediate teacher ( current) use of insulin (6) HTN (hypertension) Priority: Secondary Status: Chronic Qualifiers: Hypertension type: essential hypertension Qualified Code(s): I10 - Essential (primary) hypertension (7) CAD (coronary artery disease) Priority: Secondary Status: Chronic Qualifiers: Coronary Disease-Associated Artery/Lesion type: [place] artery [place] vs. transplanted heart: [place] heart Associated angina: without angina Qualified Code(s): I25.10 - Atherosclerotic heart disease of [place] coronary artery without angina pectoris - Discharge Medications Prescriptions: Enoxaparin [Lovenox] 80 mg SQ Q12HR #30 syr Omeprazole [PriLOSEC] 40 mg PO DAILY@0730 #30 capsule. Warfarin [Coumadin] 5 mg PO SUTUTHSA #16 tablet Warfarin Sodium [Coumadin] 6 mg PO MOWEFR #12 tablet Home Medications: Furosemide [Lasix] 20 - 40 mg PO DAILY 11/12/17 [History] Gabapentin [Neurontin] 800 mg PO TID 11/12/17 [History] Insulin ASPART [NovoLOG] 0 unit SQ TIDWM 11/12/17 [History] Insulin DETEMIR [Levemir] 60 unit SQ DAILY PRN 11/12/17 [History] Ketorolac OPTH Soln [Acular] 1 drop RIGHT EYE QID 11/12/17 [History] LevETIRAcetam [Keppra] 750 mg PO BID 11/12/17 [History] Metoprolol [Lopressor] 50 mg PO BID 11/12/17 [History] Oxycodone HCl/Acetaminophen [Percocet 10-325 mg Tablet] 1 each PO Q8H PRN [History] Oxygen 2.5 l NS HS 11/12/17 [History] Potassium Chloride [Klor-Con 10] 10 meq PO DAILY 11/12/17 [History] Prazosin [Minipress] 1 mg PO HS 11/12/17 [History] Simvastatin [Zocor] 40 mg PO HS 11/12/17 [History] Tizanidine HCl [Zanaflex] 4 mg PO HS 11/12/17 [History] diazePAM [Valium] 5 mg PO HS 11/12/17 [History] Polymyxn-B/Trimeth Opth Drops 1 drop OP QID 11/13/17 [History] PrednisoLONE Acetate 1% Opth [PredFORTE 1%] 1 drop RIGHT EYE QID 11/13/17 [ History] Enoxaparin [Lovenox] 80 mg SQ Q12HR #30 syr 11/17/17 [Rx] Omeprazole [PriLOSEC] 40 mg PO DAILY@0730 #30 capsule. 11/17/17 [Rx] Warfarin Sodium [Coumadin] 6 mg PO MOWEFR #12 tablet 11/17/17 [Rx] Warfarin [Coumadin] 5 mg PO SUTUTHSA #16 tablet 11/17/17 [Rx] Allergies/Adverse Reactions: 3 Allergy/AdvReac Type Severity Reaction Status Date / Time Penicillins Allergy Swelling Verified 11/12/17 14:13 of Lip/Tongue/Throat Sulfa (Sulfonamide Allergy Hives Verified 11/12/17 14:13 Antibiotics) tramadol Allergy Hives Verified 11/12/17 14:13 Date of admission: 11/12/17 19:52 Primary care physician: Nelda Tamayo Consults: 11/12/17 22:22 Consult to Gastroenterology [CONS] Routine Consulting Provider: Gastroenterology Sol Reason for Consult: GI bleeding Call Completed: No 11/12/17 23:13 Consult to Nutrition [CONS] Routine Comment: Consulting Provider: NUTRITION Reason for Dietary Consult: MST Score Other Consult to Records Assistant [CONS] Routine Reason for SW Consult: HAS [employer] [facility] 11/13/17 00:04 Consult to Wound Care [CONS] Routine Reason for Consult: L GREAT TOE Call Completed: No 11/13/17 13:39 Consult to Podiatry [CONS] Routine Consulting Provider: [facility] Reason for Consult: diabetic foot ulcer plantar aspect left 1st toe - R/O osteomyelitis Time Notified: 13:41 Call Completed: No 11/13/17 15:40 Consult to Interventional Radiology [CONS] Routine Consulting Provider: Radiology Interventional Cols Reason for Consult: IVC filter Time Notified: 15:41 Call Completed: Yes Discharging clinician: Symone Bustamante Anticipated date of discharge: 11/17/17 - Patient Status Disposition: Home Health Service Condition: Good Functional capacity at discharge: independent ambulation Overall status at discharge: patient is progressing back to baseline - Discharge Instructions Follow Up With: Nelda Tamayo [Primary Care Provider] - Additional Instructions: Take Lovenox 80 mg twice a day until INR is 2-3. It is very important that you take both Coumadin and Lovenox. - Diet and Activity Diet: diabetic diet Interval History: Patient stated that she was leaving. "I will take my IVs out, I have done it before." She states that she has Lovenox at home and her fridge and that she can manage her DVT with her medications at home. She says that her home health aide comes daily and her nurse comes Friday to check her INR. Today is Friday. Hospital course: Ms. Dionisio Charlton is a 62 year old female admitted with acute on chronic DVT. She was off her Coumadin for approximately 2 weeks, having stopped her Coumadin about a week before surgery and not being able to restart it due to several factors. She was also complaining of nausea, vomiting, abdominal pain and bright red blood per rectum with diarrhea. She was treated for her DVT with a heparin drip while inpatient. She had an EGD and colonoscopy. The EGD showed LA grade A esophagitis, gastritis, and duodenitis. The colonoscopy had a poor prep. No bleeding source was found. Her hemoglobin remained stable throughout her admission and she did not need blood transfusions. She has been on Coumadin for several years with histories of multiple DVTs in 2011 and 2013. The patient states that she has Lovenox at home and her refrigerator and knows how to use Lovenox. She states that she has a home health aide that comes daily. Her home health nurse will be by to check her INR in 2 days. - Time Spent with Patient Total time spent providing and/or coordinating discharge services: - Constitutional Vitals: Temp Pulse Resp BP Pulse Ox 99.2 F 75 17 136/83 97 11/17/17 07:00 11/17/17 07:00 11/17/17 07:00 11/17/17 07:00 11/17/17 07:00 General appearance: Present: A&O X 3, answers questions appropriately <Zeke Jensen - Last Filed: 11/17/17 17:17> Date of Encounter: 11/17/17 - Discharge Diagnosis (1) DVT (deep venous thrombosis) Priority: Primary Status: Acute Qualifiers: DVT location: lower extremity Affected thrombotic vein of extremity: popliteal Chronicity: chronic Laterality: left Qualified Code(s): I82.532 - Chronic embolism and thrombosis of left popliteal vein (2) Anemia Priority: Primary Status: Chronic Qualifiers: Anemia type: iron deficiency Iron deficiency anemia type: chronic blood loss Qualified Code(s): D50.0 - Iron deficiency anemia secondary to blood loss (chronic) (3) CAD (coronary artery disease) Status: Chronic Qualifiers: Coronary Disease-Associated Artery/Lesion type: [place] artery [place] vs. transplanted heart: [place] heart Associated angina: without angina Qualified Code(s): I25.10 - Atherosclerotic heart disease of [place] coronary artery without angina pectoris (4) Diabetes Status: Chronic Qualifiers: Diabetes mellitus type: type 2 Diabetes mellitus complication status: without complication Diabetes mellitus emt intermediate insulin use: with snf use Qualified Code(s): E11.9 - Type 2 diabetes mellitus without complications ; Z79.4 - penitentiary (current) use of insulin; Z79.4 - penitentiary (current) use of insulin; Z79.4 - intermediate teacher (current) use of insulin; Z79.4 - penitentiary ( current) use of insulin (5) HTN (hypertension) Status: Chronic Qualifiers: Hypertension type: essential hypertension Qualified Code(s): I10 - Essential (primary) hypertension Date of admission: 11/12/17 19:52 Primary care physician: Nelda Tamayo Consults: 11/12/17 22:22 Consult to Gastroenterology [CONS] Routine Consulting Provider: Gastroenterology Sol Reason for Consult: GI bleeding Call Completed: No 11/12/17 23:13 Consult to Nutrition [CONS] Routine Comment: Consulting Provider: NUTRITION Reason for Dietary Consult: MST Score Other Consult to Records Assistant [CONS] Routine Reason for SW Consult: HAS [id number] 11/13/17 00:04 Consult to Wound Care [CONS] Routine Reason for Consult: L GREAT TOE Call Completed: No 11/13/17 13:39 Consult to Podiatry [CONS] Routine Consulting Provider: [facility] Reason for Consult: diabetic foot ulcer plantar aspect left 1st toe - R/O osteomyelitis Time Notified: 13:41 Call Completed: No 11/13/17 15:40 Consult to Interventional Radiology [CONS] Routine Consulting Provider: Radiology Interventional Cols Reason for Consult: IVC filter Time Notified: 15:41 Call Completed: Yes Hospital course: Ms. Dionisio Charlton is a 62 year old female - Time Spent with Patient Total time spent providing and/or coordinating discharge services: 39min - Constitutional Vitals: Temp Pulse Resp BP Pulse Ox 97.9 F 76 18 150/88 100 11/17/17 15:55 11/17/17 15:55 11/17/17 15:55 11/17/17 15:55 11/17/17 15:55 - Attending Attestation I examined this patient and my medical decision-making was reviewed with the Resident Physician on 11/17/17. I agree with the documented findings, disposition and treatment plan as described except to the extent set forth below. Ms Nichole has been admitted with DVT and anemia. She is now afebrile with stable vitals. She says she has Lovenox at home that she can use. She is ready for discharge home and can have her INR monitored as outpatient. Exam Alert. Comfortable Mucus membranes dry Heart reg No wheeze Abd soft Plan D/C home today Lovenox/coumadin Follow up with PCP.
--- NOTE | 2017-11-17 10:45 | Physician Discharge Referral ---
Home Health/Hosp Referral Info Transfer to: Home Health Attending Provider: Dr. Zeke Jensen Provider in Charge Post Discharge: PCP - Diagnosis (1) DVT (deep venous thrombosis) Priority: Primary Status: Acute (2) Diabetic foot ulcer Priority: Secondary Status: Acute (3) Diarrhea Priority: Secondary Status: Acute (4) GI bleed Priority: Secondary Status: Suspected (5) Diabetes Priority: Secondary Status: Chronic (6) HTN (hypertension) Priority: Secondary Status: Chronic (7) CAD (coronary artery disease) Priority: Secondary Status: Chronic - Respiratory Orders Smoking Cessation: Smoking cessation has been advised. For more information, call the [employer] Quit Line at 7-124-QAYA-NOW. - Dressing/Wound Care Site: left 1st toe Type of Dressing/Treatments w/Frequency: Recommend cleansing left great toe daily with saline, pat dry, apply calcium alginate, with 4x4 dry sterile gauze and medipore tape. - Diet/Nutrition Diet/Nutrition Orders: No Concentrated Sweets - Activity Activity Orders: Ambulate - Services Needed Following services are medically necessary services: Nursing, Home Health Aide, Physical Therapy - Transfer Medications Prescriptions: Omeprazole [PriLOSEC] 40 mg PO DAILY@0730 #30 capsule. Warfarin [Coumadin] 5 mg PO SUTUTHSA #16 tablet Warfarin Sodium [Coumadin] 6 mg PO MOWEFR #12 tablet Home Medications: Furosemide [Lasix] 20 - 40 mg PO DAILY 11/12/17 [History] Gabapentin [Neurontin] 800 mg PO TID 11/12/17 [History] Insulin ASPART [NovoLOG] 0 unit SQ TIDWM 11/12/17 [History] Insulin DETEMIR [Levemir] 60 unit SQ DAILY PRN 11/12/17 [History] Ketorolac OPTH Soln [Acular] 1 drop RIGHT EYE QID 11/12/17 [History] LevETIRAcetam [Keppra] 750 mg PO BID 11/12/17 [History] Metoprolol [Lopressor] 50 mg PO BID 11/12/17 [History] Oxycodone HCl/Acetaminophen [Percocet 10-325 mg Tablet] 1 each PO Q8H PRN [History] Oxygen 2.5 l NS HS 11/12/17 [History] Potassium Chloride [Klor-Con 10] 10 meq PO DAILY 11/12/17 [History] Prazosin [Minipress] 1 mg PO HS 11/12/17 [History] Simvastatin [Zocor] 40 mg PO HS 11/12/17 [History] Tizanidine HCl [Zanaflex] 4 mg PO HS 11/12/17 [History] diazePAM [Valium] 5 mg PO HS 11/12/17 [History] Polymyxn-B/Trimeth Opth Drops 1 drop OP QID 11/13/17 [History] PrednisoLONE Acetate 1% Opth [PredFORTE 1%] 1 drop RIGHT EYE QID 11/13/17 [ History] Omeprazole [PriLOSEC] 40 mg PO DAILY@0730 #30 capsule. 11/17/17 [Rx] Warfarin Sodium [Coumadin] 6 mg PO MOWEFR #12 tablet 11/17/17 [Rx] Warfarin [Coumadin] 5 mg PO SUTUTHSA #16 tablet 11/17/17 [Rx] Allergies/Adverse Reactions: 3 Allergy/AdvReac Type Severity Reaction Status Date / Time Penicillins Allergy Swelling Verified 11/12/17 14:13 of Lip/Tongue/Throat Sulfa (Sulfonamide Allergy Hives Verified 11/12/17 14:13 Antibiotics) tramadol Allergy Hives Verified 11/12/17 14:13 Certification: Further, I certify that my clinical findings support that this patient is homebound (i.e. absences from home require considerable and taxing effort and are for medical reasons or congregational services or infrequently or short duration when for other reasons) because: Homebound Reason: Leaving home requires considerable and taxing effort due to condition Attestation: My signature below is to certify that this patient is under my care and that I, or nurse practitioner, or a physician's pharmacy technician assistant working with me, has a face-to -face encounter with this patient.
--- NOTE | 2017-11-17 17:20 | Event Note ---
Date of Encounter: 11/17/17 Time of Encounter: 17:18 This AM patient was ready for discharge home. She informed us that she had Lovenox in her refrigerator and could use it and have her INR checked at home. Shortly after she relayed message to us that she would not go home. We tried to verify that she had Lovenox and her pharmacy said they never filled it for her. At this point I am not sure she has what she needs at home to treat her DVT. I do not feel she is a safe discharge today and will make arrangements tomorrow. If she wants to be discharged tonight she will need to be AMA.
[2017-11-17] MEDS: *HR* Enoxaparin 80 MG/0.8 ML SYRINGE SQ SCH (17:56)
[2017-11-17] MEDS ORDERED: *HR* Warfarin 3 MG TABLET PO ONE (18:00)
[2017-11-17] MEDS: diazePAM 5 MG TABLET PO SCH (22:18)
[2017-11-17] MEDS: tiZANidine 4 MG TABLET PO SCH (22:18)
[2017-11-18 03:42] LABS: Basophils # 0.1 K/mcL (0.0-0.2); Basophils % 0.8 %; Eosinophils # 0.5 K/mcL (0.0-0.6); Eosinophils % 4.9 %; Hematocrit 29.5 % (35.3-44.9); Hemoglobin 9.3 g/dL (11.5-15.4); Immature Granulocytes % 0.5 % (0-4); Lymphocytes % 32.4 %; Mean Corpuscular HGB Conc 31.5 g/dL (31.6-35.5); Mean Corpuscular Hemoglobin 29.3 pg (28.0-33.3); Mean Corpuscular Volume 93.1 fL (83.0-100.0); Mean Platelet Volume 10.4 fL (9.4-12.4); Monocytes # 0.7 K/mcL (0.0-1.3); Monocytes % 7.2 %; Platelet Count 205 K/mcL (140-400); Red Blood Count 3.17 M/mcL (3.82-4.97); Red Cell Distribution Width 14.3 % (11.5-14.5); Segmented Neutrophils % 54.2 %
[2017-11-18 03:47] LABS: INR 1.2; Prothrombin Time 13.1 Seconds (9.4-12.1)
[2017-11-18 03:59] LABS: Calcium 8.6 mg/dL (8.6-10.3); Potassium 4.5 mEq/L (3.5-5.1)
[2017-11-18 04:11] LABS: Activated Partial Thrombo Time 39.1 Seconds (26.0-36.0)
[2017-11-18] MEDS: *HR* Enoxaparin 80 MG/0.8 ML SYRINGE SQ SCH ×2 (05:39→18:15)
[2017-11-18] MEDS: levETIRAcetam 250 MG TABLET PO SCH (08:55)
[2017-11-18] MEDS: Insulin DETEMIR 100 UNIT/ML X5UNITS SQ SCH (08:55)
[2017-11-18] MEDS: Insulin LISPRO 300 UNITS/3 ML VIAL SQ SCH ×6 (08:55→15:59)
[2017-11-18] MEDS: Polymyxn-B/Trimeth Opth Drops 10 ML BOTTLE RIGHT EYE SCH ×3 (08:56→16:04)
[2017-11-18] MEDS: Furosemide 20 MG TABLET PO SCH (08:56)
[2017-11-18] MEDS: Gabapentin 400 MG CAPSULE PO SCH ×2 (08:56→15:58)
[2017-11-18] MEDS: PrednisoLONE Acetate 1% Opth 5 ML BOTTLE RIGHT EYE SCH ×3 (08:56→16:04)
[2017-11-18] MEDS: Ketorolac OPTH Soln 5 ML BOTTLE RIGHT EYE SCH ×3 (08:56→16:04)
[2017-11-18] MEDS ORDERED: 0.9 % Sodium Chloride 1,000 ML IVC ONE (12:07)
[2017-11-18] MEDS: *HR* OxyCODONE/APAP 10/325 TABLET PO PRN ×2 (12:28→18:15)
--- NOTE | 2017-11-18 12:37 | Neurology - Consult Note ---
Date of Encounter: 11/18/17 Time of Encounter: 08:30 Assessment and Plan (1) Seizure disorder Current Visit: Yes Status: Acute This patient will apparently had a history of seizure disorder for the past several years had been evaluated by neurology at [facility] had a workup there she continued to be on Keppra generic, initially she was on 500 mg at night she is taking 750 twice At this time I would not recommend any changes in her medication as seizure seems to be stable though she keeps changing her story does not remember when was the last time she has a tonic-clonic seizure but is been a while she may have see you passing out spell but not sure exactly nature of these spells At this time suggest to continue on the Keppra home dose she could be evaluated in neurology as an outpatient And to further determine a could do ambulatory EEG to further characterize those a spell as I do not think that regular EEG would be helpful especially when she is already on medication Continue with her treatment as per primary team From neurology standpoint she could be discharged to home with seizure precautions driving restrictions and follow-up in neurology clinic (2) DVT (deep venous thrombosis) Current Visit: Yes Status: Acute Qualifiers: DVT location: lower extremity Affected thrombotic vein of extremity: popliteal Chronicity: chronic Laterality: left Qualified Code(s): I82.532 - Chronic embolism and thrombosis of left popliteal vein History of Present Illness HPI: Ms. Dionisio Charlton is a 62 year old female was admitted with the DVT noted to have a history of seizures and concern passing out according to the patient she had history of seizures and had been seen at [facility] by a neurologist several years ago and she was started on the Keppra she had never had any follow-up appointment and continue to take Keppra on a regular basis she did not have any these are generalized tonic-clonic seizures had a few syncopal events that she thinks may be seizures she denies any tongue bite denies any urinary incontinence. According to the patient she did have a workup in the past including EEG and imaging studies and was told that all negative Past Med Surg Social Fam HX - Past Medical History Medical history: DVT, diabetes, myocardial infarction Psychiatric history: anxiety, depression - Past Surgical History Surgical History: hysterectomy - Social History Smoking Status: Former smoker Packs per day: 1/2 Smokeless Tobacco Status: No Alcohol use: none Drug use: none Medications and Allergies Furosemide [Lasix] 20 - 40 mg PO DAILY 11/12/17 [History] Gabapentin [Neurontin] 800 mg PO TID 11/12/17 [History] Insulin ASPART [NovoLOG] 0 unit SQ TIDWM 11/12/17 [History] Insulin DETEMIR [Levemir] 60 unit SQ DAILY PRN 11/12/17 [History] Ketorolac OPTH Soln [Acular] 1 drop RIGHT EYE QID 11/12/17 [History] LevETIRAcetam [Keppra] 750 mg PO BID 11/12/17 [History] Metoprolol [Lopressor] 50 mg PO BID 11/12/17 [History] Oxycodone HCl/Acetaminophen [Percocet 10-325 mg Tablet] 1 each PO Q8H PRN [History] Oxygen 2.5 l NS HS 11/12/17 [History] Potassium Chloride [Klor-Con 10] 10 meq PO DAILY 11/12/17 [History] Prazosin [Minipress] 1 mg PO HS 11/12/17 [History] Simvastatin [Zocor] 40 mg PO HS 11/12/17 [History] Tizanidine HCl [Zanaflex] 4 mg PO HS 11/12/17 [History] diazePAM [Valium] 5 mg PO HS 11/12/17 [History] Polymyxn-B/Trimeth Opth Drops 1 drop OP QID 11/13/17 [History] PrednisoLONE Acetate 1% Opth [PredFORTE 1%] 1 drop RIGHT EYE QID 11/13/17 [ History] Enoxaparin [Lovenox] 80 mg SQ Q12HR #30 syr 11/17/17 [Rx] Omeprazole [PriLOSEC] 40 mg PO DAILY@0730 #30 capsule. 11/17/17 [Rx] Warfarin Sodium [Coumadin] 6 mg PO MOWEFR #12 tablet 11/17/17 [Rx] Warfarin [Coumadin] 5 mg PO SUTUTHSA #16 tablet 11/17/17 [Rx] 3 Allergy/AdvReac Type Severity Reaction Status Date / Time Penicillins Allergy Swelling Verified 11/12/17 14:13 of Lip/Tongue/Throat Sulfa (Sulfonamide Allergy Hives Verified 11/12/17 14:13 Antibiotics) tramadol Allergy Hives Verified 11/12/17 14:13 All Systems: A 10-system review of systems was performed and is negative for pertinent findings except as documented above in the HPI. Physical Examination - Vital Signs Vital Signs: Initial Vital Signs Temp Pulse Resp BP Pulse Ox 98.5 F 90 20 172/92 100 11/12/17 14:07 11/12/17 14:07 11/12/17 14:07 11/12/17 14:07 11/12/17 14:07 - Neurologic Detailed motor examination: full strength in all major muscle groups Motor examination - right side: 5/5: deltoids, biceps, triceps, wrist flexion, wrist extension, naphthalene still operator, hip flexors, tibialis Anterior, quadriceps, toe extension (EHL), plantarflexion Motor examination - left side: 5/5: deltoids, biceps, triceps, wrist flexion, wrist extension, hip flexors, naphthalene still operator, quadriceps, tibialis Anterior, toe extension (EHL), plantarflexion Detailed sensory examination: intact Reflexes: Biceps: 1+, Triceps: 1+, Brachioradialis: 1+, Patella: 1+, Achilles: 1 + Mental Status Examination: awake, alert, oriented to person, oriented to place, oriented to time, follows commands appropriately, answers questions appropriately, no agnosia, no aphasia, no aproxia Cranial nerve examination: PERRL, EOMI, visual coburn intact, corneal reflexes brisk symmetrically, sensory to face intact, mastication intact, no facial asymmetry is present, no dysarthria, hearing is intact symmetrically, soft palate elevates bilaterally upon phonation, gag reflex intact, flexes SCM and trapezius muscles symmetrically with full power, tongue protrudes midline, no atrophy or facial fasiculations present Cerebellar examination: no dysmetria, performs finger to nose and heel to fair symmetrically without ataxia, no gait ataxia, no truncal ataxia, no difficulty with rapid alternating movements Results - Laboratory Findings CBC and BMP: 11/18/17 03:19 11/18/17 03:19 Abnormal lab findings: Abnormal lab results RBC 3.17 M/mcL (3.82-4.97) L 11/18/17 03:19 Hgb 9.3 g/dL (11.5-15.4) L 11/18/17 03:19 Hct 29.5 % (35.3-44.9) L 11/18/17 03:19 MCHC 31.5 g/dL (31.6-35.5) L 11/18/17 03:19 Nucleated RBCs/100 WBC 0.1 /100 WBC (0) H 11/13/17 16:37 PT 13.1 Seconds (9.4-12.1) H 11/18/17 03:19 APTT 39.1 Seconds (26.0-36.0) H 11/18/17 03:19 Heparin Anti-Xa, Unfract 0.86 IU/mL (0.30-0.70) H 11/14/17 21:06 Chloride 113 mEq/L (98-107) H 11/18/17 03:19 BUN 26 mg/dL (8-23) H 11/18/17 03:19 Creatinine 1.48 mg/dL (0.60-1.20) H 11/18/17 03:19 Est GFR ( Amer) 43 (> 60) L 11/18/17 03:19 Est GFR (Non-Af Amer) 36 (> 60) L 11/18/17 03:19 Glucose 190 mg/dL (70-105) H 11/18/17 03:19 POC Glucose 126 (58-89) H 11/18/17 11:42 Calculated Osmolality 302 (280-300) H 11/18/17 03:19 Globulin 3.6 g/dL (2.4-3.5) H 11/12/17 17:15 Lipase 85 Units/L (11-82) H 11/12/17 17:15 Urine Clarity Cloudy (Clear) A 11/12/17 18:25 Ur Specific [place] 1.027 (1.010-1.025) H 11/12/17 18:25 Urine Protein 100 mg/dL (Neg-Trace) H 11/12/17 18:25 Urine Glucose (UA) 250 mg/dL (Normal) H 11/12/17 18:25 Ur Leukocyte Esterase Moderate (Negative) H 11/12/17 18:25 Urine Microscopic WBC 15-30 per hpf (0-3) H 11/12/17 18:25 Ur Squamous Epith Cells Many per lpf (None-Few) H 11/12/17 18:25 Urine Bacteria Many per hpf (None-Few) H 11/12/17 18:25 Stool Occult Blood Positive (Negative) A 11/12/17 18:00 Consult Discharge Plan - Plan Additional Instructions: Take Lovenox 80 mg twice a day until INR is 2-3. It is very important that you take both Coumadin and Lovenox. Referrals: Nelda Tamayo [Primary Care Provider] - Prescriptions: Enoxaparin [Lovenox] 80 mg SQ Q12HR #30 syr Omeprazole [PriLOSEC] 40 mg PO DAILY@0730 #30 capsule. Warfarin [Coumadin] 5 mg PO SUTUTHSA #16 tablet Warfarin Sodium [Coumadin] 6 mg PO MOWEFR #12 tablet
--- NOTE | 2017-11-18 13:08 | Internal Med Progress Note ---
<Symone Bustamante - Last Filed: 11/18/17 13:06> Date of Encounter: 11/18/17 Time of Encounter: 13:06 - Assessment and plan (1) DVT (deep venous thrombosis) Status: Acute Assessment and plan: Patient was discharged yesterday; however, discharge was held prior to not knowing if patient had medications that she needed at home. She is being discharged today with prescriptions being filled prior to her discharge. INR 1.2 today lovenox and coumadin Qualifiers: DVT location: lower extremity Affected thrombotic vein of extremity: popliteal Chronicity: chronic Laterality: left Qualified Code(s): I82.532 - Chronic embolism and thrombosis of left popliteal vein (2) Diabetic foot ulcer Status: Acute Assessment and plan: Being followed by wound care and podiatry X-ray negative for bone involvement Qualifiers: Diabetic foot ulcer location: toe Diabetes mellitus type: type 2 Laterality: left Non-pressure ulcer stage: limited to breakdown of skin Qualified Code(s): E11.621 - Type 2 diabetes mellitus with foot ulcer; L97.521 - Non-pressure chronic ulcer of other part of left foot limited to breakdown of skin; L97.521 - Non-pressure chronic ulcer of other part of left foot limited to breakdown of skin; L97.521 - Non-pressure chronic ulcer of other part of left foot limited to breakdown of skin; L97.521 - Non-pressure chronic ulcer of other part of left foot limited to breakdown of skin (3) Diarrhea Status: Acute Assessment and plan: Has not had diarrhea while admitted GI panel ordered Qualifiers: Diarrhea type: unspecified type Qualified Code(s): R19.7 - Diarrhea, unspecified (4) GI bleed Status: Suspected Assessment and plan: Patient admitted with history of bright red blood per rectum with diarrhea EGD: Low grade a esophagitis, localized mild inflammation of the pylorus and duodenum Colonoscopy: Poor prep. No blood seen. Repeat in 1 year for screening for colon cancer Hg stable Qualifiers: GI bleed type/associated pathology: unspecified gastrointestinal hemorrhage type Qualified Code(s): K92.2 - Gastrointestinal hemorrhage, unspecified (5) Diabetes Status: Chronic Assessment and plan: Home insulin and sliding scale Accu-Cheks ADA diet Qualifiers: Diabetes mellitus type: type 2 Diabetes mellitus complication status: without complication Diabetes mellitus intermediate insulin use: with supervisor long goods use Qualified Code(s): E11.9 - Type 2 diabetes mellitus without complications ; Z79.4 - long term care social worker (current) use of insulin; Z79.4 - nursing home (current) use of insulin; Z79.4 - nursing home (current) use of insulin; Z79.4 - nursing home ( current) use of insulin (6) HTN (hypertension) Status: Chronic Assessment and plan: Chronic, stable Continue medications Qualifiers: Hypertension type: essential hypertension Qualified Code(s): I10 - Essential (primary) hypertension (7) CAD (coronary artery disease) Status: Chronic Assessment and plan: Chronic, stable Continue medications Qualifiers: Coronary Disease-Associated Artery/Lesion type: [place] artery [place] vs. transplanted heart: [place] heart Associated angina: without angina Qualified Code(s): I25.10 - Atherosclerotic heart disease of [place] coronary artery without angina pectoris (8) Syncopal episodes Status: Acute Assessment and plan: Patient reports multiple episodes of passing and states that this happens prior to her seizures. Neurology consult prior to discharge Qualifiers: Syncope type: unspecified Qualified Code(s): R55 - Syncope and collapse - Subjective Interval history: Patient reports that she has passed out twice. She states this is what happens prior to her having a seizure. She states that she has never seen a neurologist outpatient. - Constitutional Vitals: Temp Pulse Resp BP Pulse Ox 97.8 F 84 18 151/83 98 11/18/17 11:40 11/18/17 11:40 11/18/17 11:40 11/18/17 11:40 11/18/17 11:40 General appearance: Present: A&O X 3 - Head Head exam: Present: atraumatic, normocephalic - Eye Eye exam: Present: PERRL, conjuntiva pink, sclera anicteric Pupils: Present: PERRL - Neck Neck exam general surgery: Present: supple, trachea midline - Respiratory Respiratory exam: Present: CTAB. Absent: accessory muscle use, rales, rhonchi, wheezes - Cardiovascular Cardiovascular exam: Present: RRR, +S1, +S2. Absent: diastolic murmur, gallop, rubs, systolic murmur - GI/Abdominal GI/Abdominal exam: Present: normal bowel sounds, soft, no peritoneal signs. Absent: distended, tenderness - Extremities Exam Additional comments: L LE with 1-2+ pitting edema, tenderness to palpation; bilateral LE capillary refill 2 seconds, posterior tibial pulses palpable and symmetric - Neurological Exam Neurological exam: Present: CN II-XII intact, oriented X3, no focal deficits. Absent: pronater drift, facial droop, speech deficit - Skin Skin exam: Present: dry, intact Internal Medicine: Result - Labs CBC & Chem 7: 11/18/17 03:19 11/18/17 03:19 Labs: Short CBC 11/18/17 Range/Units 03:19 WBC 9.2 (4.3-11.1) K/mcL Hgb 9.3 L (11.5-15.4) g/dL Hct 29.5 L (35.3-44.9) % Plt Count 205 (140-400) K/mcL Neutrophils # 5.0 (1.6-8.9) K/mcL BMP 11/18/17 03:19 Sodium 141 Potassium 4.5 Chloride 113 H Carbon Dioxide 24 BUN 26 H Creatinine 1.48 H Glucose 190 H Calcium 8.6 - ABG Interpretation ABG results: PT/INR, D-dimer PT 13.1 Seconds (9.4-12.1) H 11/18/17 03:19 - Impressions Impressions Head CT 11/17/17 18:39 IMPRESSION: No acute intracranial abnormality. D/ / Ace Reyna MD / Ace Reyna MD Interpreting Provider: Ace Reyna MD Consult Discharge Plan - Plan Instructions: Warfarin (By mouth), Enoxaparin (Injection), Deep Venous Thrombosis (DC) Additional Instructions: Take Lovenox 80 mg twice a day until INR is 2-3. It is very important that you take both Coumadin and Lovenox. Referrals: Nelda Tamayo [Primary Care Provider] - Prescriptions: Enoxaparin [Lovenox] 80 mg SQ Q12HR #30 syr Omeprazole [PriLOSEC] 40 mg PO DAILY@0730 #30 capsule. Warfarin [Coumadin] 5 mg PO SUTUTHSA #16 tablet Warfarin Sodium [Coumadin] 6 mg PO MOWEFR #12 tablet Zolpidem [Ambien] 5 mg PO HS PRN #14 tablet PRN Reason: Insomnia <Zeke Jensen - Last Filed: 11/18/17 19:31> Date of Encounter: 11/18/17 - Assessment and plan (1) DVT (deep venous thrombosis) Status: Acute Qualifiers: DVT location: lower extremity Affected thrombotic vein of extremity: popliteal Chronicity: chronic Laterality: left Qualified Code(s): I82.532 - Chronic embolism and thrombosis of left popliteal vein (2) Anemia Status: Chronic Qualifiers: Anemia type: iron deficiency Iron deficiency anemia type: chronic blood loss Qualified Code(s): D50.0 - Iron deficiency anemia secondary to blood loss (chronic) (3) CAD (coronary artery disease) Status: Chronic Qualifiers: Coronary Disease-Associated Artery/Lesion type: [place] artery [place] vs. transplanted heart: [place] heart Associated angina: without angina Qualified Code(s): I25.10 - Atherosclerotic heart disease of [place] coronary artery without angina pectoris (4) Diabetes Status: Chronic Qualifiers: Diabetes mellitus type: type 2 Diabetes mellitus complication status: without complication Diabetes mellitus intermediate insulin use: with intermediate use Qualified Code(s): E11.9 - Type 2 diabetes mellitus without complications ; Z79.4 - long term care social worker (current) use of insulin; Z79.4 - nursing home (current) use of insulin; Z79.4 - long term care social worker (current) use of insulin; Z79.4 - long term care social worker ( current) use of insulin (5) HTN (hypertension) Status: Chronic Qualifiers: Hypertension type: essential hypertension Qualified Code(s): I10 - Essential (primary) hypertension - Constitutional Vitals: Temp Pulse Resp BP Pulse Ox 97.5 F L 77 17 114/71 95 11/18/17 15:39 11/18/17 15:45 11/18/17 15:39 11/18/17 15:45 11/18/17 15:39 Internal Medicine: Result - Labs CBC & Chem 7: 11/18/17 03:19 11/18/17 03:19 Labs: Short CBC 11/18/17 Range/Units 03:19 WBC 9.2 (4.3-11.1) K/mcL Hgb 9.3 L (11.5-15.4) g/dL Hct 29.5 L (35.3-44.9) % Plt Count 205 (140-400) K/mcL Neutrophils # 5.0 (1.6-8.9) K/mcL BMP 11/18/17 03:19 Sodium 141 Potassium 4.5 Chloride 113 H Carbon Dioxide 24 BUN 26 H Creatinine 1.48 H Glucose 190 H Calcium 8.6 - ABG Interpretation ABG results: PT/INR, D-dimer PT 13.1 Seconds (9.4-12.1) H 11/18/17 03:19 - Impressions Impressions Head CT 11/17/17 18:39 IMPRESSION: No acute intracranial abnormality. D/ / Ace Reyna MD / Ace Reyna MD Interpreting Provider: Ace Reyna MD - Attending Attestation I examined this patient and my medical decision-making was reviewed with the Resident Physician on 11/18/17. I agree with the documented findings, disposition and treatment plan as described except to the extent set forth below. Ms Nichole has been admitted for anemia and concern for GI bleed as well as DVT. Today she is complaining of feeling dizzy and "not feeling right." She is tolerating Lovenox and coumadin. We have discussed that she is ready to go home today and she continues to complain of dizzy, syncope (not witnessed), weakness (ambulates in room without assistance). She is stating she is going to go directly to another ED when she leaves here. Exam Alert Comfortable Mucus membranes moist Heart not tachy No wheeze ABd soft I/P 1. DVT 2. Anemia During this visit we have monitored her H/H and renal function. She underwent EGD and colon with no overt bleeding. She was on heparin drip and Lovenox with coumadin and will be discharged on Lovenox/coumadin which we will fill here so she has them when she goes home. Neuro evaluated her today for dizziness and ordered Keppra level and will see as outpatient for 48 hour EEG monitor. She is orthostatic negative but did receive a liter of fluid today. She has been difficult to evaluate here as she has had many different stories and told different people different things. Her story and mood have changed within minutes. She has spoken about "cold concrete floors" at home. At this point in time I can find no reason that she needs to stay in the hospital as an inpatient. She will follow with her PCP. We have increased her services at home to help her more. Unfortunately she may go to another ED today or return here.
[2017-11-18 15:45] VITALS: BP 114/71
[2017-11-18] MEDS ORDERED: *HR* Warfarin 5 MG TABLET PO ONE (18:00)
== END 2017-11-18 18:40 | disposition home health service (06) | DRG 197 ==
LOC: 3ANU 13:30 → EMEROO 13:30 → SUATTDRO 19:52 → 2ANU 20:45
PROVIDERS: ADMIT Nurse Practitioner; ATTEND Internal Medicine
PROC: ENDOEBX (2017-11-14 08:00)